=== PATIENT | male | born 1955 ===

== ENCOUNTER 2017-01-16 15:36 | Emergency (ER) | payer MEDICARE, OTHER ==
[2017-01-16 15:36] VITALS: BMI 27.3
[2017-01-16 15:47] VITALS: BP 128/91; PULSE 91; RESP 18; TEMP 97.6; O2SAT 97
--- NOTE | 2017-01-16 17:23 | ED PDOC ---
HPI: General Adult Time Seen by Provider: 01/16/17 15:55 Chief Complaint (Nursing): Lower Extremity Problem/Injury Chief Complaint (Provider): labs History Per: Patient History/Exam Limitations: no limitations Additional Complaint(s): 61yo M in ED for eval of hip pain with cramping to left side and left upper ext cramping with pain x 2days with associated SOB- intermittent without Chest pain , vision changes, weakness in UE/LE,recent injury. denies use any new medication Past Medical History Reviewed: Historical Data, Nursing Documentation, Vital Signs Vital Signs: Last Vital Signs Temp 97.6 F 01/16/17 15:44 Pulse 91 H 01/16/17 15:44 Resp 18 01/16/17 15:44 BP 128/91 H 01/16/17 15:44 Pulse Ox 97 01/16/17 18:31 - Medical History PMH: Anxiety, Depression, Seizures Denies: Diabetes, Hepatitis, HIV, HTN, Chronic Kidney Disease, Sexually Transmitted Disease - Surgical History Surgical History: Appendectomy, Cholecystectomy - Family History Family History: States: Unknown Family Hx - Immunization History Hx Tetanus Toxoid Vaccination: No Hx Influenza Vaccination: No Hx Pneumococcal Vaccination: No - Home Medications Home Medications: Ambulatory Orders Medication Instructions Recorded Escitalopram [Lexapro] 15 mg PO DAILY 01/15/14 Famotidine [Pepcid] 20 mg PO DAILY #30 tab 01/15/14 Olanzapine [Zyprexa] 5 mg PO DAILY 01/15/14 Famotidine [Pepcid] 20 mg PO DAILY #0 tab 08/21/14 Pantoprazole [Protonix EC Tab] 20 mg PO DAILY #0 ect 08/21/14 levETIRAcetam [Keppra] 1,000 mg PO BID #0 tab 08/21/14 Divalproex [Depakote Sprinkles] 250 mg PO DIN 09/09/14 Escitalopram [Lexapro] 10 mg PO DAILY 12/24/14 OLANZapine [Zyprexa] 5 mg PO HS 12/24/14 Zolpidem [Ambien] 10 mg PO HS PRN 12/24/14 Cyanocobalamin [Vitamin B12 1000 1,000 mcg PO DAILY #0 tab 01/15/15 mcg Tab] Docusate [Colace] 100 mg PO BID PRN #30 cap 09/19/15 Hydrocortisone 2.5% (Rectal) 30 applic NM BID #1 tube 09/19/15 [Anusol-HC] Lidocaine [Recticare] 15 gm TP BID PRN #1 cream..g. 09/19/15 - Allergies Allergies/Adverse Reactions: Allergies Allergy/AdvReac Type Severity Reaction Status Date / Time paroxetine HCl [From Paxil] Allergy RASH Verified 09/19/15 05:29 phenytoin sodium Allergy SWELLING Verified 09/22/15 04:36 [From Dilantin] phenytoin sodium extended Allergy SWELLING Verified 09/22/15 04:36 [From Dilantin] Review of Systems ROS Statement: Except As Marked, All Systems Reviewed And Found Negative Musculoskeletal: Positive for: Arm Pain, Leg Pain Physical Exam - Reviewed Nursing Documentation Reviewed: Yes Vital Signs Reviewed: Yes - Physical Exam Appears: Positive for: Well, Non-toxic, No Acute Distress Skin: Positive for: Normal Color, Warm, DRY Eye Exam: Positive for: Normal appearance, EOMI, PERRL ENT: Positive for: Normal ENT Inspection Neck: Positive for: Normal, Painless ROM Cardiovascular/Chest: Positive for: Regular Rate, Rhythm Respiratory: Positive for: CNT, Normal Breath Sounds Gastrointestinal/Abdominal: Positive for: Normal Exam, Bowel Sounds, Soft. 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 Negative for: Facial Droop - ECG O2 Sat by Pulse Oximetry: 97 - Radiology X-Ray: Read By Radiologist X-Ray Interpretation: No Acute Disease - Progress ED Course And Treament: Orders Category Date Time Status EKG [ELECTROCARDIOGRAM] Stat Cardiology 01/16/17 18:31 Ordered COMP METABOLIC PANEL Stat Chem 01/16/17 18:35 Ordered TROPONIN I Stat Chem 01/16/17 18:35 Ordered EKG-ED [EDNURTX] STAT ED Care 01/16/17 18:31 Active CBC (WITH DIFFERENTIAL) Stat ELMO 01/16/17 18:35 Ordered Ibuprofen [Motrin Tab] Med 01/16/17 17:31 Discontinued 600 mg .ROUTE .STK-MED ONE Ibuprofen [Motrin Tab] Med 01/16/17 17:02 Discontinued 600 mg PO STAT STA Ketorolac [Toradol] Med 01/16/17 18:52 Discontinued 15 mg .ROUTE .STK-MED ONE Ketorolac [Toradol] Med 01/16/17 18:31 Discontinued 15 mg IVP STAT STA Sodium Chloride 0.9% 1,000 ml Med 01/16/17 18:31 Active IV 1,000 mls/hr HIP MIN 3V W/ PELVIS ABIEL [RAD] Stat Radiology 01/16/17 17:02 Completed INFLUENZA A B Stat Serology 01/16/17 17:33 Completed Disposition - Disposition Condition: STABLE Forms: [employer] (Italian)
--- NOTE | 2017-01-16 18:10 | RAD ---
PROCEDURE: X-rays of the pelvis and hips HISTORY: injury COMPARISON: No prior TECHNIQUE: AP view of the pelvis AP and oblique views of the hips. FINDINGS: No evidence of acute fracture or dislocation. No evidence of destructive bony lesion IMPRESSION: No evidence of acute fracture or dislocation.
[2017-01-16] MEDS ORDERED: Sodium Chloride 0.9% 1,000 ML IV STA (18:31)
[2017-01-16 20:00] LABS: BASO # 0.1 K/uL (0.0-0.2); BASO % 0.9 % (0.0-2.0); EOS # 0.1 K/uL (0.0-0.7); EOS % 1.1 % (0.0-4.0); LYMPH # 2.3 K/uL (1.0-4.3); LYMPH % 21.6 % (20.0-40.0); MEAN CELL VOLUME 93.7 fl (80.0-94.0); MEAN CORPUSCULAR HEMOGLOBIN 31.6 pg (27.0-31.0); MEAN CORPUSCULAR HGB CONC 33.7 g/dL (33.0-37.0); MEAN PLATELET VOLUME 8.9 fl (7.2-11.7); MONO % 8.9 % (0.0-10.0); NEUT # 7.3 K/uL (1.8-7.0); NEUT % 67.5 % (50.0-75.0); RED CELL DISTRIBUTION WIDTH 13.5 % (11.5-14.5); WHITE BLOOD COUNT 10.8 K/uL (4.8-10.8)
[2017-01-16 20:25] LABS: ALB/GLOB RATIO 1.3 (1.0-2.1); ALKALINE PHOSPHATASE 74 U/L (38-126); ALT/SGPT 64 U/L (21-72); AST/SGOT 103 U/L (17-59); BILIRUBIN,TOTAL 1.4 mg/dl (0.2-1.3); BLOOD UREA NITROGEN 20 mg/dl (9-20); CALCIUM 8.5 mg/dL (8.4-10.2); CARBON DIOXIDE 26 mmol/L (22-30); CHLORIDE 103 mmol/L (98-107); GFR AFRICAN-AMERICAN > 60; GLUCOSE,RANDOM 82 mg/dL (75-110); POTASSIUM 3.8 MMOL/L (3.6-5.0); SODIUM 140 mmol/l (132-148); TOTAL PROTEIN 7.4 G/DL (6.3-8.2)
--- NOTE | 2017-01-16 20:25 | ED PDOC ---
- Laboratory Results Result Diagrams: 01/16/17 19:56 01/16/17 19:56 - ECG O2 Sat by Pulse Oximetry: 97 - Progress ED Course And Treament: Patient transfered to me from Cynthia Rice PA-C for evaluation of left hand paresthesia noted x 2 days after sleep. d/w Dr. Walker. Ct Head/CT C spine wnl. Patient to f/u with his neurologist for further evaluation. Medical Decision Making Medical Decision Makin XR HIP FINDINGS No evidence of acute fracture or dislocation. No evidence of destructive bony lesion IMPRESSION: No evidence of acute fracture or dislocation. 2301 CT HEAD FINDINGS Brain: Minimal atrophy. No intracranial hemorrhage. Lipoma of corpus callosum, stable. No definite edema. Ventricles: No hydrocephalus. Bones/joints: No acute fracture. Soft tissues: Unremarkable. Sinuses: Scattered minimal mucosal thickening. Mastoid air cells: No mastoid effusion. Orbits: Unremarkable as visualized. IMPRESSION: 1. No definite acute intracranial abnormality. Acute infarction may be CT occult within first 24 hours. If a focal deficit persists, consider followup CT or MRI for further evaluation. 2. Incidental/non-acute findings are described above. 2308 CT CERVICAL SPINE FINDINGS Vertebrae: No acute fracture. Discs/spinal canal/neural foramina: Early degenerative disc disease at C3-C4 level. Mild degenerative disc disease at C4-C5, C5-C6, C6-C7 levels. No significant central canal stenosis. Mild neural foraminal narrowing at C5-C6 level. Soft tissues: Unremarkable. Sinuses: Mild focal mucosal thickening of LEFT maxillary sinus. Lung apices: Probable scarring. IMPRESSION: 1. No fracture. 2. If symptoms persist, consider MRI for further evaluation. 3. Incidental/non-acute findings are described above. Scribe Attestation: Documented by Karie Arenas acting as a scribe for Maisha Lujan PA-C. Scribe Attestation: All medical record entries made by the Scribe were at my direction and personally dictated by me. I have reviewed the chart and agree that the record accurately reflects my personal performance of the history, physical exam, medical decision making, and the department course for this patient. I have also personally directed, reviewed, and agree with the discharge instructions and disposition. Disposition - Clinical Impression Clinical Impression: Paresthesias in left hand - POA Present On Arrival: None - Disposition Referrals: [facility] [Outside] Debbie Chen MD [Staff Provider] - Disposition: Routine/Home Disposition Time: 23:27 Condition: STABLE Prescriptions: Naproxen 1 tab PO BID PRN #14 tab PRN Reason: Pain, Moderate (4-7) Instructions: Paresthesia (ED) Forms: [employer] (Nepali) Print Language: CITIZEN OF [place]
--- NOTE | 2017-01-16 23:03 | CT ---
EXAM: CT Head Without Intravenous Contrast CLINICAL HISTORY: 61 years old, male; Signs and symptoms; Numbness / parasthesia; Left; Additional info: Numbness in hand TECHNIQUE: Axial computed tomography images of the head/brain without intravenous contrast. All CT scans at this facility use one or more dose reduction techniques, viz.: automated exposure control; ma/kV adjustment per patient size (including targeted exams where dose is matched to indication; i.e. head); or iterative reconstruction technique. Coronal and sagittal reformatted images were created and reviewed. COMPARISON: CT - HEAD W/O CONTRAST 2016-02-15 17:17 FINDINGS: Brain: Minimal atrophy. No intracranial hemorrhage. Lipoma of corpus callosum, stable. No definite edema. Ventricles: No hydrocephalus. Bones/joints: No acute fracture. Soft tissues: Unremarkable. Sinuses: Scattered minimal mucosal thickening. Mastoid air cells: No mastoid effusion. Orbits: Unremarkable as visualized. IMPRESSION: 1. No definite acute intracranial abnormality. Acute infarction may be CT occult within first 24 hours. If a focal deficit persists, consider followup CT or MRI for further evaluation. 2. Incidental/non-acute findings are described above.
--- NOTE | 2017-01-16 23:10 | CT ---
EXAM: CT Cervical Spine Without Intravenous Contrast CLINICAL HISTORY: 61 years old, male; Signs and symptoms; Numbness; Additional info: Left hand numbness/r/o cervical disc disease TECHNIQUE: Axial computed tomography images of the cervical spine without intravenous contrast. All CT scans at this facility use one or more dose reduction techniques, viz.: automated exposure control; ma/kV adjustment per patient size (including targeted exams where dose is matched to indication; i.e. head); or iterative reconstruction technique. Coronal and sagittal reformatted images were created and reviewed. COMPARISON: No relevant prior studies available. FINDINGS: Vertebrae: No acute fracture. Discs/spinal canal/neural foramina: Early degenerative disc disease at C3-C4 level. Mild degenerative disc disease at C4-C5, C5-C6, C6-C7 levels. No significant central canal stenosis. Mild neural foraminal narrowing at C5-C6 level. Soft tissues: Unremarkable. Sinuses: Mild focal mucosal thickening of LEFT maxillary sinus. Lung apices: Probable scarring. IMPRESSION: 1. No fracture. 2. If symptoms persist, consider MRI for further evaluation. 3. Incidental/non-acute findings are described above.
== END 2017-01-16 23:40 | disposition home or self-care (01) ==
LOC: H.ER 15:36
DX: R20.0 Anesthesia of skin (principal)
CPT/HCPCS: 70450; 72125; 73522; 80053; 83735; 84484; 85025; 87804; 96374; 99283; J1885; J7040

== ENCOUNTER 2017-04-11 14:41 | Emergency (ER) | payer MEDICARE, OTHER ==
[2017-04-11 14:43] VITALS: BMI 27.3
[2017-04-11 14:48] VITALS: TEMP 97.6; O2SAT 98
--- NOTE | 2017-04-11 17:04 | ED PDOC ---
HPI: Seizure Time Seen by Provider: 04/11/17 15:17 Chief Complaint (Nursing): Seizure Chief Complaint (Provider): Seizure History Per: Patient Additional Complaint(s): To ED via BLS for evaluation s/p seizure at home, witnessed by family members. Patient now c/o headache and b/l Calf pain Past Medical History Reviewed: Nursing Documentation, Vital Signs Vital Signs: Last Vital Signs Temp 97.6 F 04/11/17 14:46 Pulse 90 04/11/17 18:49 Resp 19 04/11/17 18:49 BP 120/70 04/11/17 18:49 Pulse Ox 98 04/11/17 19:11 - Medical History PMH: Anxiety, Depression, HTN, Seizures Denies: Diabetes, Hepatitis, HIV, Chronic Kidney Disease, Sexually Transmitted Disease - Surgical History Surgical History: Appendectomy, Cholecystectomy - Family History Family History: States: No Known Family Hx - Living Arrangements Living Arrangements: With Family - Social History Current smoker - smoking cessation education provided: No Ex-Smoker (has not smoked in the last 12 months): No Alcohol: None Drugs: Cannabis - Immunization History Hx Tetanus Toxoid Vaccination: No Hx Influenza Vaccination: No Hx Pneumococcal Vaccination: No - Home Medications Home Medications: Ambulatory Orders Medication Instructions Recorded levETIRAcetam [Keppra] 1,000 mg PO BID #0 tab 08/21/14 Divalproex [Depakote Sprinkles] 125 mg PO HS 09/09/14 Zolpidem [Ambien] 10 mg PO HS PRN 12/24/14 Escitalopram [Lexapro] 10 mg PO DAILY #30 tab 03/05/17 OLANZapine [Zyprexa] 5 mg PO HS 04/11/17 - Allergies Allergies/Adverse Reactions: Allergies Allergy/AdvReac Type Severity Reaction Status Date / Time paroxetine HCl [From Paxil] Allergy RASH Verified 04/11/17 14:45 phenytoin sodium Allergy SWELLING Verified 04/11/17 14:45 [From Dilantin] phenytoin sodium extended Allergy SWELLING Verified 04/11/17 14:45 [From Dilantin] haloperidol [From Haldol] AdvReac SWELLING Verified 04/11/17 14:45 Review of Systems ROS Statement: Except As Marked, All Systems Reviewed And Found Negative Neurological: Positive for: Seizures Physical Exam - Reviewed Nursing Documentation Reviewed: Yes Vital Signs Reviewed: Yes - Physical Exam Appears: Positive for: Well, Non-toxic, No Acute Distress Head Exam: Positive for: ATRAUMATIC, NORMAL INSPECTION, NORMOCEPHALIC Skin: Positive for: Normal Color, Warm, DRY Eye Exam: Positive for: EOMI, Normal appearance, PERRL ENT: Positive for: Normal ENT Inspection Neck: Positive for: Normal, Painless ROM Cardiovascular/Chest: Positive for: Regular Rate, Rhythm Respiratory: Positive for: CNT, Normal Breath Sounds Gastrointestinal/Abdominal: Positive for: Normal Exam, Bowel Sounds, Soft Back: Positive for: Normal Inspection Extremity: Positive for: Normal ROM, Calf Tenderness, Other (PT and DP pulses 2+ ). Negative for: Swelling Neurologic/Psych: Positive for: Alert, Oriented - Laboratory Results Result Diagrams: 04/11/17 17:22 04/11/17 17:22 - ECG O2 Sat by Pulse Oximetry: 98 Medical Decision Making Medical Decision Making: Head CT: Negative Labs resulted and reviewed with Pt who demonstrated full understanding. Pt doing well on re-eval, labs remain stable Case endorsed to Shanti Manuel at 2000 pending duplex and re-eval Disposition - Clinical Impression Clinical Impression: Generalized seizure - Patient ED Disposition Is Patient to be Admitted: Transfer of Care - Disposition Disposition: Transfer of Care Disposition Time: 21:09 Condition: STABLE Instructions: Epilepsy (ED) Forms: [employer] (Turkmen)
[2017-04-11 17:31] LABS: BASO # 0.1 K/uL (0.0-0.2); BASO % 0.6 % (0.0-2.0); EOS # 0.2 K/uL (0.0-0.7); EOS % 1.6 % (0.0-4.0); HEMOGLOBIN 16.9 g/dL (12.0-18.0); LYMPH # 2.9 K/uL (1.0-4.3); LYMPH % 29.9 % (20.0-40.0); MEAN CELL VOLUME 93.1 fl (80.0-94.0); MEAN CORPUSCULAR HEMOGLOBIN 30.8 pg (27.0-31.0); MEAN CORPUSCULAR HGB CONC 33.1 g/dL (33.0-37.0); MEAN PLATELET VOLUME 9.8 fl (7.2-11.7); MONO # 0.7 K/uL (0.0-0.8); MONO % 7.6 % (0.0-10.0); NEUT # 5.8 K/uL (1.8-7.0); NEUT % 60.3 % (50.0-75.0); NRBC % 0.7 % (0.0-0.0); RBC 5.49 Mil/uL (4.40-5.90); RED CELL DISTRIBUTION WIDTH 13.6 % (11.5-14.5); WHITE BLOOD COUNT 9.6 K/uL (4.8-10.8)
[2017-04-11 18:11] LABS: ALB/GLOB RATIO 1.3 (1.0-2.1); ALBUMIN 5.1 g/dL (3.5-5.0); ALT/SGPT 30 U/L (21-72); AST/SGOT 35 U/L (17-59); BLOOD UREA NITROGEN 10 mg/dl (9-20); CALCIUM 9.9 mg/dL (8.4-10.2); GFR AFRICAN-AMERICAN > 60; GFR NON-AFRICAN AMERICAN > 60
--- NOTE | 2017-04-11 18:14 | RAD ---
PROCEDURE: CHEST RADIOGRAPH, 1 VIEW HISTORY: med screening COMPARISON: 01/13/2015. FINDINGS: LUNGS: The lungs are well inflated and clear. PLEURA: No pneumothorax or pleural fluid seen. CARDIOVASCULAR: Normal. OSSEOUS STRUCTURES: No significant abnormalities. VISUALIZED UPPER ABDOMEN: Normal. OTHER FINDINGS: None. IMPRESSION: No active pulmonary disease.
--- NOTE | 2017-04-11 18:18 | CT ---
PROCEDURE: CT HEAD WITHOUT CONTRAST. HISTORY: AMS COMPARISON: 01/16/2017. TECHNIQUE: Axial computed tomography images were obtained through the head/brain without intravenous contrast. Radiation dose: Total exam DLP = 1252.72 mGy-cm. This CT exam was performed using one or more of the following dose reduction techniques: Automated exposure control, adjustment of the mA and/or kV according to patient size, and/or use of iterative reconstruction technique. FINDINGS: HEMORRHAGE: No intracranial hemorrhage. BRAIN: Moscoso-white matter differentiation is preserved. There is no mass, mass effect or abnormal extra-axial fluid collection. Again seen is a lipoma of the corpus callosum. VENTRICLES: The ventricles are normal in size, shape and configuration. CALVARIUM: There is no calvarial fracture or extracranial soft tissue swelling. PARANASAL SINUSES: Predominantly clear. MASTOID AIR CELLS: Predominantly clear. OTHER FINDINGS: None. IMPRESSION: No acute intracranial abnormality.
[2017-04-11 22:09] VITALS: BP 138/85; PULSE 92; RESP 18
--- NOTE | 2017-04-11 22:11 | US ---
EXAM: US Duplex Bilateral Lower Extremity Veins CLINICAL HISTORY: 61 years old, male; Pain; Leg, lower; Bilateral; Additional info: R/O dvt TECHNIQUE: Real-time ultrasound scan of the veins of the bilateral lower extremities with color Doppler flow, spectral waveform analysis and compression. COMPARISON: No relevant prior studies available. FINDINGS: Right deep veins: Unremarkable. No DVT in the right common femoral, femoral, proximal deep femoral or popliteal veins. The veins demonstrate normal color flow, are normally compressible, with normal phasic flow and/or augmentation response. Right superficial veins: Unremarkable. No thrombus in the visualized right great saphenous vein. Left deep veins: Unremarkable. No DVT in the left common femoral, femoral, proximal deep femoral or popliteal veins. The veins demonstrate normal color flow, are normally compressible, with normal phasic flow and/or augmentation response. Left superficial veins: Unremarkable. No thrombus in the visualized left great saphenous vein. Soft tissues: No acute findings. No popliteal cyst. IMPRESSION: No evidence of right or left lower extremity deep venous thrombosis.
--- NOTE | 2017-04-11 22:45 | ED PDOC ---
- Laboratory Results Result Diagrams: 04/11/17 17:22 04/11/17 17:22 - ECG O2 Sat by Pulse Oximetry: 98 - Progress ED Course And Treament: Case endorsed to loan underwriter from Bonifacio GOMEZ pending u/s EXAM: US Duplex Bilateral Lower Extremity Veins CLINICAL HISTORY: 61 years old, male; Pain; Leg, lower; Bilateral; Additional info: R/O dvt TECHNIQUE: Real-time ultrasound scan of the veins of the bilateral lower extremities with color Doppler flow, spectral waveform analysis and compression. COMPARISON: No relevant prior studies available. FINDINGS: Right deep veins: Unremarkable. No DVT in the right common femoral, femoral, proximal deep femoral or popliteal veins. The veins demonstrate normal color flow, are normally compressible, with normal phasic flow and/or augmentation response. Right superficial veins: Unremarkable. No thrombus in the visualized right great saphenous vein. Left deep veins: Unremarkable. No DVT in the left common femoral, femoral, proximal deep femoral or popliteal veins. The veins demonstrate normal color flow, are normally compressible, with normal phasic flow and/or augmentation response. Left superficial veins: Unremarkable. No thrombus in the visualized left great saphenous vein. Soft tissues: No acute findings. No popliteal cyst. IMPRESSION: No evidence of right or left lower extremity deep venous thrombosis. On re-eval, patient resting comfortably, states he is feeling better. Patient educated on findings, discharged with instructions to follow up PMD 2-3 days. Return precautions given. Disposition - Clinical Impression Clinical Impression: Generalized seizure - POA Present On Arrival: None - Disposition Disposition: Routine/Home Disposition Time: 22:46 Condition: IMPROVED Instructions: Epilepsy (ED) Forms: [employer] (Ukrainian)
== END 2017-04-11 23:10 | disposition home or self-care (01) ==
LOC: H.ER 14:41
DX: G40.909 Epilepsy, unspecified, not intractable, without status epilepticus (principal); I10 Essential (primary) hypertension; F32.9 Major depressive disorder, single episode, unspecified; F41.9 Anxiety disorder, unspecified
CPT/HCPCS: 70450; 71045; 80053; 85025; 93970; 96360; 99285; J3480

== ENCOUNTER 2017-11-08 11:49 | Inpatient (IN) | payer OTHER ==
[2017-11-08 12:00] VITALS: BMI 32.8
[2017-11-08] MEDS ORDERED: Lidocaine 1% w Epi 1:100,000 Inj INFIL ONE (12:25)
[2017-11-08] MEDS ORDERED: Lidocaine 2% w Epi 1:100,000 Inj IJ ONE (12:26)
--- NOTE | 2017-11-08 12:49 | ED PDOC ---
HPI: Skin/Bite Injury Time Seen by Provider: 11/08/17 12:20 Chief Complaint (Nursing): Abnormal Skin Integrity History Per: Patient History/Exam Limitations: no limitations Current Symptoms Are (Timing): Still Present Additional Complaint(s): 61-year-old male, presents to the emergency department with complaints of one- week duration of swelling and pain to left hip. Patient denies any fever or chills. Tetanus up to date. Past Medical History Reviewed: Historical Data, Nursing Documentation, Vital Signs Vital Signs: Last Vital Signs Temp 98.5 F 11/08/17 11:59 Pulse 79 11/08/17 11:59 Resp 20 11/08/17 11:59 BP 127/71 11/08/17 11:59 Pulse Ox 99 11/08/17 14:06 - Medical History PMH: Anxiety, Depression, HTN, Seizures - Surgical History Surgical History: Appendectomy, Cholecystectomy - Family History Family History: States: No Known Family Hx - Immunization History Hx Tetanus Toxoid Vaccination: No Hx Influenza Vaccination: No Hx Pneumococcal Vaccination: No - Home Medications Home Medications: Ambulatory Orders Medication Instructions Recorded levETIRAcetam [Keppra] 1,000 mg PO BID #0 tab 08/21/14 Divalproex [Depakote Sprinkles] 125 mg PO HS 09/09/14 Zolpidem [Ambien] 10 mg PO HS PRN 12/24/14 Escitalopram [Lexapro] 10 mg PO DAILY #30 tab 03/05/17 OLANZapine [Zyprexa] 5 mg PO HS 04/11/17 Cephalexin [Keflex] 500 mg PO QID #28 capsule 11/08/17 Naproxen 375 mg PO Q8 PRN #21 tablet 11/08/17 Sulfamethoxazole/Trimethoprim 2 tab PO BID #28 tab 11/08/17 [Bactrim DS 800 mg-160 mg] - Allergies Allergies/Adverse Reactions: Allergies Allergy/AdvReac Type Severity Reaction Status Date / Time paroxetine HCl [From Paxil] Allergy dyskinesia Verified 11/08/17 12:25 like phenytoin sodium Allergy SWELLING Verified 11/08/17 12:24 [From Dilantin] phenytoin sodium extended Allergy SWELLING Verified 11/08/17 12:24 [From Dilantin] haloperidol [From Haldol] AdvReac SWELLING Verified 11/08/17 12:24 Review of Systems Skin: Positive for: Other (swelling and pain to left hip) Physical Exam - Reviewed Nursing Documentation Reviewed: Yes Vital Signs Reviewed: Yes - Physical Exam Appears: Positive for: Non-toxic, No Acute Distress Head Exam: Positive for: ATRAUMATIC, NORMOCEPHALIC Skin: Positive for: Warm (6x6cm area of induration, swelling with surrounding erythema. ), Dry Eye Exam: Positive for: Normal appearance Neck: Positive for: Painless ROM Extremity: Positive for: Normal ROM. Negative for: Deformity Neurologic/Psych: Positive for: Alert, Oriented - ECG O2 Sat by Pulse Oximetry: 99 Medical Decision Making Medical Decision Making: Impression Cellulitis Plan: * Vancomycin, Toradol * Lido/Epi, I&D * Reassess and Disposition Scribe Attestation: Documented by Gabriel Cabrera, acting as a scribe for YUE Griggs. Provider Scribe Attestation: All medical record entries made by the Scribe were at my direction and personally dictated by me. I have reviewed the chart and agree that the record accurately reflects my personal performance of the history, physical exam, medical decision making, and the department course for this patient. I have also personally directed, reviewed, and agree with the discharge instructions and disposition. Disposition - Clinical Impression Clinical Impression: Abscess, Cellulitis of left hip - Patient ED Disposition Is Patient to be Admitted: No - Disposition Referrals: Gavino Hidalgo MD [Staff Provider] - Disposition: Routine/Home Disposition Time: 14:47 Condition: FAIR Additional Instructions: REGRESA EN 2 AMAYA PARA REVISAR Prescriptions: Cephalexin [Keflex] 500 mg PO QID #28 capsule Naproxen 375 mg PO Q8 PRN #21 tablet PRN Reason: Pain, Moderate (4-7) Sulfamethoxazole/Trimethoprim [Bactrim DS 800 mg-160 mg] 2 tab PO BID #28 tab Instructions: Skin Abscess, Cellulitis and Erysipelas (Skin Infections) Forms: [facility] ED School/Work Excuse Print Language: BRAZILIAN - Incision & Drainage Of Abscess Anesthesia: Lidocaine 2%, With Epi Procedure: Incised W/Scalpel Blade#: (10), Drained Pus (moderate), Probed To Break Up Loculations, Packed W/Gauze
[2017-11-08] MEDS ORDERED: Vancomycin 1 g Inj ONE (12:58)
[2017-11-08] MEDS ORDERED: Morphine 4 MG/ML VIAL IVP STA (15:04)
[2017-11-08] MEDS ORDERED: Morphine 4 MG/ML VIAL ONE (15:26)
[2017-11-08 15:34] LABS: VENOUS BLOOD GAS BASE EXCESS 1.7 mmol/L (0.0-2.0); VENOUS BLOOD GAS PCO2 30 mmHg (40-60); VENOUS BLOOD GAS PO2 67 mm/Hg (30-55); VENOUS BLOOD PH 7.51 (7.32-7.43)
[2017-11-08 15:35] LABS: BASO # 0.1 K/uL (0.0-0.2); BASO % 0.6 % (0.0-2.0); EOS # 0.2 K/uL (0.0-0.7); EOS % 1.1 % (0.0-4.0); LYMPH # 1.9 K/uL (1.0-4.3); LYMPH % 11.1 % (20.0-40.0); MEAN CELL VOLUME 91.2 fl (80.0-94.0); MEAN CORPUSCULAR HEMOGLOBIN 31.5 pg (27.0-31.0); MEAN CORPUSCULAR HGB CONC 34.5 g/dL (33.0-37.0); MEAN PLATELET VOLUME 9.9 fl (7.2-11.7); MONO # 1.5 K/uL (0.0-0.8); MONO % 8.5 % (0.0-10.0); NEUT # 13.8 K/uL (1.8-7.0); NEUT % 78.7 % (50.0-75.0); RBC 4.77 Mil/uL (4.40-5.90); RED CELL DISTRIBUTION WIDTH 12.8 % (11.5-14.5); WHITE BLOOD COUNT 17.5 K/uL (4.8-10.8)
[2017-11-08 15:54] LABS: BLOOD UREA NITROGEN 12 mg/dl (9-20); CALCIUM 9.1 mg/dL (8.4-10.2); GFR NON-AFRICAN AMERICAN > 60
[2017-11-08 16:01] LABS: SQUAMOUS EPITHIAL 5 /hpf (0-5); URINE BACTERIA RARE (<OCC); URINE BILIRUBIN NEGATIVE (NEGATIVE); URINE BLOOD SMALL (NEGATIVE); URINE CLARITY SLIGHTY-CLOUDY (Clear); URINE COLOR YELLOW (YELLOW); URINE GLUCOSE (UA) NEG (Normal); URINE HYALINE CAST 0-2 /hpf (0-2); URINE LEUKOCYTE ESTERASE NEG Leu/uL (Negative); URINE PROTEIN NEGATIVE (NEGATIVE); URINE UROBILINOGEN 0.2-1.0 mg/dL (0.2-1.0)
[2017-11-08] MEDS ORDERED: Piperacillin/Tazobact 3.375 GM in Sodium Chloride 0.9% 100 ML IVPB STA (16:05)
[2017-11-08] MEDS ORDERED: Iohexol 300 100 ML IJ ONE (18:31)
[2017-11-08] MEDS ORDERED: Sodium Chloride 0.9% 100 ML ONE (18:31)
[2017-11-08] MEDS: Piperacillin/Tazobact 3.375 GM in Sodium Chloride 0.9% 100 ML IVPB SCH (21:28)
[2017-11-08] MEDS: Divalproex 125 mg Sprinkle Capsule PO SCH (21:29)
[2017-11-09] MEDS: Piperacillin/Tazobact 3.375 GM in Sodium Chloride 0.9% 100 ML IVPB SCH ×4 (03:50→21:19)
[2017-11-09 05:58] LABS: HEMOGLOBIN 14.1 g/dL (12.0-18.0); MEAN CELL VOLUME 93.2 fl (80.0-94.0); MEAN CORPUSCULAR HEMOGLOBIN 31.1 pg (27.0-31.0); MEAN CORPUSCULAR HGB CONC 33.4 g/dL (33.0-37.0); RBC 4.54 Mil/uL (4.40-5.90); WHITE BLOOD COUNT 13.3 K/uL (4.8-10.8)
[2017-11-09 06:30] LABS: BLOOD UREA NITROGEN 16 mg/dl (9-20); CALCIUM 8.6 mg/dL (8.4-10.2); GFR NON-AFRICAN AMERICAN > 60; HDL CHOLESTEROL 35 MG/DL (30-70)
[2017-11-09 06:32] LABS: LDL CHOLESTEROL 59 mg/dL (0-129)
[2017-11-09 06:52] LABS: T3 0.805 nmol/L (1.49-2.60)
--- NOTE | 2017-11-09 09:42 | CT ---
Date of service: 11/08/2017 PROCEDURE: CT Abdomen and Pelvis with contrast HISTORY: dr bates, r/o abscess COMPARISON: Limited abdomen ultrasound 09/22/2015. TECHNIQUE: Following the intravenous administration of iodinated contrast material, a CT examination of the abdomen and pelvis performed from the domes of the diaphragms to the symphysis pubis with reformatted datasets provided in axial, sagittal and coronal planes. Oral contrast was not administered as per referring physician request. Coronal and sagittal reformats were generated. Contrast dose: Omnipaque 350, 95 cc Radiation dose: Total exam DLP = 452.14 mGy-cm. This CT exam was performed using one or more of the following dose reduction techniques: Automated exposure control, adjustment of the mA and/or kV according to patient size, and/or use of iterative reconstruction technique. FINDINGS: LOWER THORAX: 5.5 mm right middle lobe basilar nodule, noncalcified. Limited linear atelectasis left lower lobe base. Mild cardiomegaly suspected. LIVER: Unremarkable. No gross lesion or ductal dilatation. GALLBLADDER AND BILE DUCTS: Unremarkable. PANCREAS: Unremarkable. No gross lesion or ductal dilatation. SPLEEN: Unremarkable. ADRENALS: Unremarkable. No mass. KIDNEYS AND URETERS: Stable lower pole 1.5 right renal cyst identified. Interval or previously poorly demonstrate 1.4 cm complex cyst or soft tissue lesion midpole right kidney posteriorly which is indeterminate in etiology based on this single phase contrast exam. There multiple right middle lower pole lucencies too small to characterize however. Left kidney appears unremarkable. VASCULATURE: Unremarkable. No aortic aneurysm. BOWEL: Stomach distended with retained food and otherwise unremarkable. This limits evaluation. Evaluation of the gastrointestinal tract is limited due to the lack of oral contrast administration. No bowel obstruction, pericolic or perienteric reaction identified. APPENDIX: Normal appendix. PERITONEUM: Unremarkable. No free fluid. No free air. LYMPH NODES: Unremarkable. No enlarged lymph nodes. BLADDER: Unremarkable. REPRODUCTIVE: Mild prostate gland enlargement. BONES: No acute fracture. OTHER FINDINGS: There is extensive dermal thickening and subcutaneous reaction related to the lateral left buttocks with the hyperdensity measuring 1.5 x 1.3 cm in the immediate subcutaneous fat laterally potentially reflecting a small abscess or retained radiodense foreign body. Clinically correlate further. IMPRESSION: 1. 1.5 cm hyperdensity surrounded by a prominent left lateral buttocks subcutaneous fatty reaction and dermal thickening suspicious for potential retained radiodense foreign body, phlegmon or abscess or combination of all 3. Clinically for correlate further. 2. Stable 1.5 cm right renal cyst with indeterminate 1.4 cm complex cyst or soft tissue lesion at the lower pole for which follow-up CT or MRI without and without contrast is advised. 3. 5.5 mm right middle lobe basilar nodule, noncalcified. Follow-up chest CT advised in 12 months. Lung RAD 2. Concordant preliminary report from [facility], 11/08/2017.
--- NOTE | 2017-11-09 12:44 | RAD ---
Date of service: 11/09/2017 HISTORY: Admission COMPARISON: 04/11/2017. FINDINGS: LUNGS: No active pulmonary disease. PLEURA: No significant pleural effusion identified, no pneumothorax apparent. CARDIOVASCULAR: No radiographic findings to suggest acute or significant cardiovascular disease. OSSEOUS STRUCTURES: No significant abnormalities. VISUALIZED UPPER ABDOMEN: Normal. OTHER FINDINGS: None. IMPRESSION: No active disease. No significant interval change compared to the prior examination(s).
--- NOTE | 2017-11-09 13:21 | CP.PCM.CON ---
History of Present Illness - History of Present Illness History of Present Illness: 61-year-old male, presents to the emergency department with complaints of one- week duration of swelling and pain to left hip. Patient denies any fever or chills. Tetanus up to date. has large abscess over left hip which is painful and tender ID consulted for this - Medical History PMH: Anxiety, Depression, HTN, Seizures - Surgical History Surgical History: Appendectomy, Cholecystectomy Review of Systems - Review of Systems All systems: reviewed and no additional remarkable complaints except - Constitutional Constitutional: As Per HPI - EENT Eyes: absent: As Per HPI, Blind Spots, Blurred Vision, Change in Vision, Decreased Night Vision, Diplopia, Discharge, Dry Eye, Exophthalmos, Floaters, Irritation, Itchy Eyes, Loss of Peripheral Vision, Pain, Photophobia, Requires Corrective Lenses, Sees Flashes, Spots in Vision, Tunnel Vision, Other Visual Disturbances, Loss of Vision, Other Ears: absent: As Per HPI, Decreased Hearing, Ear Discharge, Ear Pain, Tinnitus, Abnormal Hearing, Disequilibrium, Dizziness, Other Nose/Mouth/Throat: absent: As Per HPI, Epistaxis, Nasal Congestion, Nasal Discharge, Nasal Obstruction, Nasal Trauma, Nose Pain, Post Nasal Drip, Sinus Pain, Sinus Pressure, Bleeding Gums, Change in Voice, Dental Pain, Dry Mouth, Dysphagia, Halitosis, Hoarsness, Lip Swelling, Mouth Lesions, Mouth Pain, Odynophagia, Sore Throat, Throat Swelling, Tongue Swelling, Facial Pain, Neck Pain, Neck Mass, Other - Cardiovascular Cardiovascular: absent: As Per HPI, Acrocyanosis, Chest Pain, Chest Pain at Rest , Chest Pain with Activity, Claudication, Diaphoresis, Dyspnea, Dyspnea on Exertion, Edema, Irregular Heart Rhythm, Pain Radiating to Arm/Neck/Jaw, Leg Edema, Leg Ulcers, Lightheadedness, Orthopnea, Palpitations, Paroxysmal Nocturnal Dyspnea, Pedal Edema, Radiating Pain, Rapid Heart Rate, Slow Heart Rate, Syncope, Other - Respiratory Respiratory: absent: As Per HPI, Cough, Dyspnea, Hemoptysis, Dyspnea on Exertion , Wheezing, Snoring, Stridor, Pain on Inspiration, Chest Congestion, Excessive Mucous Production, Change in Mucous Color, Pain with Coughing, Other - Gastrointestinal Gastrointestinal: absent: As Per HPI, Abdominal Pain, Belching, Bloating, Change in Bowel Habits, Change in Stool Character, Coffee Ground Emesis, Constipation, Cramping, Diarrhea, Dyspepsia, Dysphagia, Early Satiety, Excessive Flatus, Fecal Incontinence, Heartburn, Hematemesis, Hematochezia, Loose Stools, Melena, Nausea, Odynophagia, Temesmus, Vomiting, Other - Genitourinary Genitourinary: absent: As Per HPI, Change in Urinary Stream, Difficulty Urinating, Dysuria, Flank Pain, Hematuria, Pyuria, Nocturia, Urinary Incontinence, Urinary Frequency, Urinary Hesitance, Urinary Urgency, Voiding Freq/Small Amts, Freq UTI, Hx Renal/Bladder Calculi, Hx /Renal Surgery, Bladder Distension, Other - Musculoskeletal Musculoskeletal: As Per HPI - Integumentary Integumentary: As Per HPI, Skin Pain, Wounds - Neurological Neurological: absent: As Per HPI, Abnormal Gait, Abnormal Hearing, Abnormal Movements, Abnormal Speech, Behavioral Changes, Burning Sensations, Confusion, Convulsions, Disequilibrium, Dizziness, Numbness, Focal Weakness, Frequent Falls , Headaches, Lack of Coordination, Loss of Vision, Memory Loss, Paresthesias, Radicular Pain, Restless Legs, Sensory Deficit, Syncope, Tingling, Tremor, Vertigo, Weakness, Other Visual Disturbances, Other - Psychiatric Psychiatric: absent: As Per HPI, Abnormal Sleep Pattern, Anhedonia, Anxiety, Auditory Hallucinations, Behavioral Changes, Change in Appetite, Change in Libido, Confusion, Depression, Difficulty Concentrating, Hallucinations, Homicidal Ideation, Hopelessness, Irritability, Memory Loss, Mood Swings, Panic Attacks, Paranoia, Suicidal Ideation, Visual Hallucinations, Tactile Hallucinations, Other - Endocrine Endocrine: absent: As Per HPI, Change in Body Appearance, Change in Libido, Cold Intolorance, Deepening of Voice, Excessive Sweating, Fatigue, Flushing, Heat Intolorance, Increase in Ring/Shoe/Hat Size, Palpitations, Polydipsia, Polyphagia, Polyuria, Other - Hematologic/Lymphatic Hematologic: absent: As Per HPI, Easy Bleeding, Easy Bruising, Lymphadenopathy, Other Past Patient History - Past Medical History & Family History Past Medical History?: Yes - Past Social History Smoking Status: Former Smoker - CARDIAC Hx Hypertension: Yes - PULMONARY Hx Tuberculosis: No - NEUROLOGICAL Hx Seizures: Yes - HEENT Hx HEENT Problems: No - ENDOCRINE/METABOLIC Hx Endocrine Disorders: Yes - HEMATOLOGICAL/ONCOLOGICAL Hx Cancer: No - INTEGUMENTARY Hx Dermatological Problems: No - MUSCULOSKELETAL/RHEUMATOLOGICAL Hx Musculoskeletal Disorders: No Hx Falls: No - GASTROINTESTINAL Hx Gastrointestinal Disorders: No - GENITOURINARY/GYNECOLOGICAL Hx Genitourinary Disorders: No - PSYCHIATRIC Hx Anxiety: Yes Hx Depression: Yes Hx Substance Use: No - SURGICAL HISTORY Hx Appendectomy: Yes Hx Cholecystectomy: Yes - ANESTHESIA Hx Anesthesia: Yes Hx Anesthesia Reactions: No Hx Malignant Hyperthermia: No Meds Home Medications: Home Medication List Medication Instructions Recorded Confirmed Type Cephalexin [Keflex] 500 mg PO QID #28 capsule 11/08/17 Rx Naproxen 375 mg PO Q8 PRN #21 tablet 11/08/17 Rx Sulfamethoxazole/Trimethoprim 2 tab PO BID #28 tab 11/08/17 Rx [Bactrim DS 800 mg-160 mg] Allergies/Adverse Reactions: Allergies Allergy/AdvReac Type Severity Reaction Status Date / Time paroxetine HCl [From Paxil] Allergy dyskinesia Verified 11/08/17 12:25 like phenytoin sodium Allergy SWELLING Verified 11/08/17 12:24 [From Dilantin] phenytoin sodium extended Allergy SWELLING Verified 11/08/17 12:24 [From Dilantin] haloperidol [From Haldol] AdvReac SWELLING Verified 11/08/17 12:24 - Medications Medications: Current Medications Divalproex Sodium (Depakote Sprinkles) 125 mg PO HS [facility] Last Admin: 11/08/17 21:29 Dose: 125 mg Escitalopram Oxalate (Lexapro) 10 mg PO DAILY [facility] Last Admin: 11/09/17 08:00 Dose: 10 mg Piperacillin Sod/Tazobactam (Sod 3.375 gm/ Sodium Chloride) 100 mls @ 100 mls/ hr IVPB Q6 ANGELITO PRN Reason: Protocol Last Admin: 11/09/17 08:59 Dose: 100 mls/hr Vancomycin HCl 1 gm/ Sodium (Chloride) 250 mls @ 166.667 mls/hr IVPB Q12@0000, 1200 ANGELITO PRN Reason: Protocol Last Admin: 11/09/17 12:04 Dose: 166.667 mls/hr Levetiracetam (Keppra) 1,000 mg PO BID [facility] Last Admin: 11/09/17 07:59 Dose: 1,000 mg Morphine Sulfate (Morphine) 2 mg IVP Q4 PRN PRN Reason: Pain, severe (8-10) Last Admin: 11/09/17 06:11 Dose: 2 mg Olanzapine (Zyprexa) 5 mg PO HS ANGELITO Last Admin: 11/08/17 21:30 Dose: 5 mg Zolpidem Tartrate (Ambien) 5 mg PO HS PRN PRN Reason: Insomnia Physical Exam - Constitutional Appears: No Acute Distress - Head Exam Head Exam: ATRAUMATIC, NORMAL INSPECTION, NORMOCEPHALIC - Eye Exam Eye Exam: PERRL. absent: Scleral icterus - ENT Exam ENT Exam: Mucous Membranes Dry, Normal External Ear Exam, Normal Oropharynx - Neck Exam Neck exam: Negative for: Lymphadenopathy - Respiratory Exam Respiratory Exam: Decreased Breath Sounds, Clear to Auscultation Bilateral - Cardiovascular Exam Cardiovascular Exam: REGULAR RHYTHM, +S1, +S2 - GI/Abdominal Exam GI & Abdominal Exam: Diminished Bowel Sounds, Distended, Soft. absent: Tenderness - Rectal Exam Rectal Exam: Deferred - Exam Exam: NORMAL INSPECTION - Extremities Exam Extremities exam: Positive for: pedal pulses present. Negative for: calf tenderness, pedal edema, tenderness - Back Exam Back exam: absent: CVA tenderness (L), CVA tenderness (R), paraspinal tenderness - Neurological Exam Neurological exam: Alert, CN II-XII Intact, Oriented x3, Reflexes Normal - Psychiatric Exam Psychiatric exam: Depressed - Skin Additional comments: large abscess over left hip with painful tender area surrounding this Results - Vital Signs Recent Vital Signs: Last Vital Signs Temp 98.4 F 11/09/17 08:31 Pulse 81 11/09/17 08:31 Resp 18 11/09/17 08:31 BP 114/71 11/09/17 08:31 Pulse Ox 96 11/09/17 08:31 - Labs Result Diagrams: 11/09/17 05:40 11/09/17 05:40 Labs: Laboratory Results - last 24 hr 11/08/17 11/08/17 11/08/17 15:25 15:25 15:25 WBC 17.5 H D RBC 4.77 Hgb 15.0 Hct 43.5 MCV 91.2 MCH 31.5 H MCHC 34.5 RDW 12.8 Plt Count 255 MPV 9.9 Neut % (Auto) 78.7 H Lymph % (Auto) 11.1 L [place] % (Auto) 8.5 Eos % (Auto) 1.1 Baso % (Auto) 0.6 Neut # (Auto) 13.8 H Lymph # (Auto) 1.9 [place] # (Auto) 1.5 H Eos # (Auto) 0.2 Baso # (Auto) 0.1 pO2 VBG pH VBG pCO2 VBG HCO3 VBG Total CO2 VBG O2 Sat (Calc) VBG Base Excess VBG Potassium Glucose Lactate FiO2 Sodium 137 Potassium 4.7 Chloride 106 Carbon Dioxide 19 L Anion Gap 17 BUN 12 Creatinine 0.7 L Est GFR ( Amer) > 60 Est GFR (Non-Af Amer) > 60 Random Glucose 94 Calcium 9.1 Triglycerides Cholesterol LDL Cholesterol Direct HDL Cholesterol Thyroxine (T4) Total T3 Venous Blood Potassium Urine Color Yellow Urine Clarity Slighty-cloudy Urine pH 6.0 Ur Specific [place] 1.018 Urine Protein Negative Urine Glucose (UA) Neg Urine Ketones Negative Urine Blood Small Urine Nitrate Negative Urine Bilirubin Negative Urine Urobilinogen 0.2-1.0 Ur Leukocyte Esterase Neg Urine RBC (Auto) 4 H Urine Microscopic WBC 1 Ur Squamous Epith Cells 5 Urine Bacteria Rare Hyaline Casts 0-2 Valproic Acid 11/08/17 11/09/17 11/09/17 15:27 05:40 05:40 WBC 13.3 H RBC 4.54 Hgb 14.1 Hct 42.3 MCV 93.2 D MCH 31.1 H MCHC 33.4 RDW 13.0 Plt Count 228 MPV Neut % (Auto) Lymph % (Auto) [place] % (Auto) Eos % (Auto) Baso % (Auto) Neut # (Auto) Lymph # (Auto) [place] # (Auto) Eos # (Auto) Baso # (Auto) pO2 67 H VBG pH 7.51 H VBG pCO2 30 L VBG HCO3 26.2 VBG Total CO2 24.8 VBG O2 Sat (Calc) 97.8 H VBG Base Excess 1.7 VBG Potassium 4.4 Glucose 99 Lactate 1.7 FiO2 21.0 Sodium 134.0 138 Potassium 4.3 Chloride 105.0 104 Carbon Dioxide 27 Anion Gap 11 BUN 16 Creatinine 1.1 Est GFR ( Amer) > 60 Est GFR (Non-Af Amer) > 60 Random Glucose 93 Calcium 8.6 Triglycerides 147 Cholesterol 135 LDL Cholesterol Direct 59 HDL Cholesterol 35 Thyroxine (T4) 7.30 Total T3 0.805 L Venous Blood Potassium 4.4 Urine Color Urine Clarity Urine pH Ur Specific [place] Urine Protein Urine Glucose (UA) Urine Ketones Urine Blood Urine Nitrate Urine Bilirubin Urine Urobilinogen Ur Leukocyte Esterase Urine RBC (Auto) Urine Microscopic WBC Ur Squamous Epith Cells Urine Bacteria Hyaline Casts Valproic Acid 11/09/17 11:07 WBC RBC Hgb Hct MCV MCH MCHC RDW Plt Count MPV Neut % (Auto) Lymph % (Auto) [place] % (Auto) Eos % (Auto) Baso % (Auto) Neut # (Auto) Lymph # (Auto) [place] # (Auto) Eos # (Auto) Baso # (Auto) pO2 VBG pH VBG pCO2 VBG HCO3 VBG Total CO2 VBG O2 Sat (Calc) VBG Base Excess VBG Potassium Glucose Lactate FiO2 Sodium Potassium Chloride Carbon Dioxide Anion Gap BUN Creatinine Est GFR ( Amer) Est GFR (Non-Af Amer) Random Glucose Calcium Triglycerides Cholesterol LDL Cholesterol Direct HDL Cholesterol Thyroxine (T4) Total T3 Venous Blood Potassium Urine Color Urine Clarity Urine pH Ur Specific [place] Urine Protein Urine Glucose (UA) Urine Ketones Urine Blood Urine Nitrate Urine Bilirubin Urine Urobilinogen Ur Leukocyte Esterase Urine RBC (Auto) Urine Microscopic WBC Ur Squamous Epith Cells Urine Bacteria Hyaline Casts Valproic Acid < 10.0 L Assessment & Plan (1) Abscess Status: Acute (2) Cellulitis of left hip Status: Acute (3) Alcohol use disorder, severe, dependence Status: Acute (4) Bipolar disorder, now depressed Status: Acute - Assessment and Plan (Free Text) Assessment: 61 yo male with hx of bipolar and etoh admitted with severe cellulitis and abscess left hip high concern for MRSA consider MRI, Ortho eval and observe for DT's await cultures from limited ED drainage may need I and D in OR cont IV antibiotics
--- NOTE | 2017-11-09 16:00 | CP.PCM.CON ---
<Eduardo Tijerina - Last Filed: 11/09/17 18:02> History of Present Illness - History of Present Illness History of Present Illness: General Surgery Consult Note for Dr. Joseph Reason for consult: left hip abscess, s/p I&D in ED 61 M with no significant PMH presents to [facility] for complaint of Left hip swelling , redness and pain. He states that symptoms were present for 1 week. He reports that it started out as a small pimple which he tried to pop. He states that some pus had come out at that time. Over the next week, symptoms worsened. Patient was admitted for Left hip abscess and cellulitis. The left hip abscess was I&D in the ED and packed. Patient was started on broad spectrum antibiotics and ID was consulted. He rates pain as severe. He describes pain as constant and sharp located on the left hip. Palpation and movement aggravates pain but nothing alleviates the pain. Admits to fever/chills. Denies chest pain , SOB, palpitations, abdominal pain, nausea/vomiting, diarrhea, constipation, crepitus. PMH: Denies PSH: Appendectomy, R inguinal hernia Meds: denies All: paroxetine, phenytoin, haloperidol FH:non-contributory Social: Denies tobacco/EtOH/illicit drug use Review of Systems - Review of Systems All systems: reviewed and no additional remarkable complaints except (as per HPI ) Past Patient History - Past Medical History & Family History Past Medical History?: Yes - Past Social History Smoking Status: Former Smoker - CARDIAC Hx Hypertension: Yes - PULMONARY Hx Tuberculosis: No - NEUROLOGICAL Hx Seizures: Yes - HEENT Hx HEENT Problems: No - ENDOCRINE/METABOLIC Hx Endocrine Disorders: Yes - HEMATOLOGICAL/ONCOLOGICAL Hx Cancer: No - INTEGUMENTARY Hx Dermatological Problems: No - MUSCULOSKELETAL/RHEUMATOLOGICAL Hx Musculoskeletal Disorders: No Hx Falls: No - GASTROINTESTINAL Hx Gastrointestinal Disorders: No - GENITOURINARY/GYNECOLOGICAL Hx Genitourinary Disorders: No - PSYCHIATRIC Hx Anxiety: Yes Hx Depression: Yes Hx Substance Use: No - SURGICAL HISTORY Hx Appendectomy: Yes Hx Cholecystectomy: Yes - ANESTHESIA Hx Anesthesia: Yes Hx Anesthesia Reactions: No Hx Malignant Hyperthermia: No Meds Home Medications: Home Medication List Medication Instructions Recorded Confirmed Type Cephalexin [Keflex] 500 mg PO QID #28 capsule 11/08/17 Rx Naproxen 375 mg PO Q8 PRN #21 tablet 11/08/17 Rx Sulfamethoxazole/Trimethoprim 2 tab PO BID #28 tab 11/08/17 Rx [Bactrim DS 800 mg-160 mg] Allergies/Adverse Reactions: Allergies Allergy/AdvReac Type Severity Reaction Status Date / Time paroxetine HCl [From Paxil] Allergy dyskinesia Verified 11/08/17 12:25 like phenytoin sodium Allergy SWELLING Verified 11/08/17 12:24 [From Dilantin] phenytoin sodium extended Allergy SWELLING Verified 11/08/17 12:24 [From Dilantin] haloperidol [From Haldol] AdvReac SWELLING Verified 11/08/17 12:24 - Medications Medications: Current Medications Divalproex Sodium (Depakote Sprinkles) 125 mg PO HS [facility] Last Admin: 11/08/17 21:29 Dose: 125 mg Escitalopram Oxalate (Lexapro) 10 mg PO DAILY [facility] Last Admin: 11/09/17 08:00 Dose: 10 mg Piperacillin Sod/Tazobactam (Sod 3.375 gm/ Sodium Chloride) 100 mls @ 100 mls/ hr IVPB Q6 [facility] PRN Reason: Protocol Last Admin: 11/09/17 15:47 Dose: 100 mls/hr Vancomycin HCl 1 gm/ Sodium (Chloride) 250 mls @ 166.667 mls/hr IVPB Q12@0000, 1200 [facility] PRN Reason: Protocol Last Admin: 11/09/17 12:04 Dose: 166.667 mls/hr Levetiracetam (Keppra) 1,000 mg PO BID [facility] Last Admin: 11/09/17 15:59 Dose: 1,000 mg Morphine Sulfate (Morphine) 2 mg IVP Q4 PRN PRN Reason: Pain, severe (8-10) Last Admin: 11/09/17 15:46 Dose: 2 mg Olanzapine (Zyprexa) 5 mg PO HS [facility] Last Admin: 11/08/17 21:30 Dose: 5 mg Zolpidem Tartrate (Ambien) 5 mg PO HS PRN PRN Reason: Insomnia Physical Exam - Constitutional Appears: Non-toxic, No Acute Distress - Head Exam Head Exam: ATRAUMATIC, NORMOCEPHALIC - Eye Exam Eye Exam: Normal appearance - ENT Exam ENT Exam: Mucous Membranes Moist - Respiratory Exam Respiratory Exam: NORMAL BREATHING PATTERN - Cardiovascular Exam Cardiovascular Exam: REGULAR RHYTHM - GI/Abdominal Exam GI & Abdominal Exam: Soft. absent: Tenderness - Extremities Exam Extremities exam: Positive for: normal capillary refill. Negative for: calf tenderness Additional comments: large area of erythema over left hip with central raised area, I&D scar in the middle, no crepitus present - Back Exam Back exam: absent: CVA tenderness (L), CVA tenderness (R) - Neurological Exam Neurological exam: Alert, Oriented x3 - Psychiatric Exam Psychiatric exam: Normal Affect, Normal Mood - Skin Skin Exam: Dry, Erythema, Warm Results - Vital Signs Recent Vital Signs: Last Vital Signs Temp 98.4 F 11/09/17 08:31 Pulse 81 11/09/17 08:31 Resp 18 11/09/17 08:31 BP 114/71 11/09/17 08:31 Pulse Ox 96 11/09/17 08:31 - Labs Result Diagrams: 11/09/17 05:40 11/09/17 05:40 Labs: Laboratory Results - last 24 hr 11/08/17 11/09/17 11/09/17 15:25 05:40 05:40 WBC 13.3 H RBC 4.54 Hgb 14.1 Hct 42.3 MCV 93.2 D MCH 31.1 H MCHC 33.4 RDW 13.0 Plt Count 228 Sodium 138 Potassium 4.3 Chloride 104 Carbon Dioxide 27 Anion Gap 11 BUN 16 Creatinine 1.1 Est GFR ( Amer) > 60 Est GFR (Non-Af Amer) > 60 Random Glucose 93 Calcium 8.6 Triglycerides 147 Cholesterol 135 LDL Cholesterol Direct 59 HDL Cholesterol 35 Thyroxine (T4) 7.30 Total T3 0.805 L Urine Color Yellow Urine Clarity Slighty-cloudy Urine pH 6.0 Ur Specific [place] 1.018 Urine Protein Negative Urine Glucose (UA) Neg Urine Ketones Negative Urine Blood Small Urine Nitrate Negative Urine Bilirubin Negative Urine Urobilinogen 0.2-1.0 Ur Leukocyte Esterase Neg Urine RBC (Auto) 4 H Urine Microscopic WBC 1 Ur Squamous Epith Cells 5 Urine Bacteria Rare Hyaline Casts 0-2 Valproic Acid 11/09/17 11:07 WBC RBC Hgb Hct MCV MCH MCHC RDW Plt Count Sodium Potassium Chloride Carbon Dioxide Anion Gap BUN Creatinine Est GFR ( Amer) Est GFR (Non-Af Amer) Random Glucose Calcium Triglycerides Cholesterol LDL Cholesterol Direct HDL Cholesterol Thyroxine (T4) Total T3 Urine Color Urine Clarity Urine pH Ur Specific [place] Urine Protein Urine Glucose (UA) Urine Ketones Urine Blood Urine Nitrate Urine Bilirubin Urine Urobilinogen Ur Leukocyte Esterase Urine RBC (Auto) Urine Microscopic WBC Ur Squamous Epith Cells Urine Bacteria Hyaline Casts Valproic Acid < 10.0 L Assessment & Plan - Assessment and Plan (Free Text) Assessment: 61 M with left hip abscess s/p I&D POD#1 Plan: -Diet as tolerated -IVF -Continue IV Abx as per ID -I's & O's -f/u daily labs -Monitor for progression -Discussed with Dr. Jake Tijerina PGY2 - Date & Time Date: 11/09/17 Time: 15:30 <Jp Joseph - Last Filed: 11/10/17 13:56> History of Present Illness - History of Present Illness History of Present Illness: Patient was seen and examined at the bedside. Agree with resident's note above. Meds - Medications Medications: Current Medications Divalproex Sodium (Depakote Sprinkles) 125 mg PO HS [facility] Last Admin: 11/09/17 21:21 Dose: 125 mg Escitalopram Oxalate (Lexapro) 10 mg PO DAILY [facility] Last Admin: 11/10/17 08:32 Dose: 10 mg Piperacillin Sod/Tazobactam (Sod 3.375 gm/ Sodium Chloride) 100 mls @ 100 mls/ hr IVPB Q6 [facility] PRN Reason: Protocol Last Admin: 11/10/17 09:01 Dose: 100 mls/hr Vancomycin HCl 1 gm/ Sodium (Chloride) 250 mls @ 166.667 mls/hr IVPB Q12@0000, 1200 [facility] PRN Reason: Protocol Last Admin: 11/10/17 11:33 Dose: 166.667 mls/hr Levetiracetam (Keppra) 1,000 mg PO BID [facility] Last Admin: 11/10/17 08:31 Dose: 1,000 mg Morphine Sulfate (Morphine) 2 mg IVP Q4 PRN PRN Reason: Pain, severe (8-10) Last Admin: 11/10/17 08:35 Dose: 2 mg Olanzapine (Zyprexa) 5 mg PO HS [facility] Last Admin: 11/09/17 21:21 Dose: 5 mg Zolpidem Tartrate (Ambien) 5 mg PO HS PRN PRN Reason: Insomnia Results - Vital Signs Recent Vital Signs: Last Vital Signs Temp 97.9 F 11/10/17 08:06 Pulse 82 11/10/17 08:06 Resp 20 11/10/17 08:06 BP 103/65 11/10/17 08:06 Pulse Ox 98 11/10/17 08:06 - Labs Result Diagrams: 11/10/17 08:36 11/09/17 05:40 Labs: Laboratory Results - last 24 hr 11/10/17 11/10/17 06:30 08:36 WBC 10.5 RBC 4.63 Hgb 14.5 Hct 43.0 MCV 92.8 MCH 31.4 H MCHC 33.8 RDW 12.8 Plt Count 258 MPV 10.0 Neut % (Auto) 69.5 Lymph % (Auto) 18.4 L [place] % (Auto) 8.0 Eos % (Auto) 3.6 Baso % (Auto) 0.5 Neut # (Auto) 7.3 H Lymph # (Auto) 1.9 [place] # (Auto) 0.8 Eos # (Auto) 0.4 Baso # (Auto) 0.1 Vancomycin Trough 13.5 H - Imaging and Cardiology CT scan - pelvis Status: Image reviewed by me, Report reviewed by me Assessment & Plan - Assessment and Plan (Free Text) Plan: - Continue antibiotics - No general surgery intervention at present time - Repeat labs in am - pain control - Will follow
--- NOTE | 2017-11-09 16:36 | CP.PCM.HP ---
History of Present Illness - History of Present Illness History of Present Illness: CC: L hip pain. 61 y/o M, PMHx Bipolar Disorder, ETOH, SI, Depression, Seizure, came to [facility] on 11/08/17, to be evaluated for gradually increased L hip pain that began a week [employer] with no relief. As Pt described, Hx stated with a small pimple that he pop with some pus coming out, there after, pain start increasing gradually with burning sensation, constant, sharp, severe intensity 8-10:10, associated to swelling/ redness in the area, also fever/chills. In ER [facility] 100.9 F. Worsening symptoms: Found with large abscess on L hip on Abd/Pelv CT. Pt had I&D in the ER unit and was admitted. Aggravated factor: Movements, palpation in the I/D site. Pt denied: N/V/D, abdominal pain, urinary symptoms, CP, palpitations, syncope, dizziness, SOB, cough, sick contact, recent travel out of [place]. CXR: No active disease. Echo: Dilated Aortic root, LVEF 55-60%. R middle Lung Nodule on CT. Present on Admission - Present on Admission Any Indicators Present on Admission: No Review of Systems - Constitutional Constitutional: Chills, Fever - EENT Eyes: Other (negative) Ears: Other (negative) Nose/Mouth/Throat: Other (negative) - Cardiovascular Cardiovascular: Other (negative) - Respiratory Respiratory: Other (negative) - Gastrointestinal Gastrointestinal: Other (negative) - Genitourinary Genitourinary: Other (negative) - Musculoskeletal Musculoskeletal: Other (L hip pain) - Integumentary Integumentary: Swelling (L hip) - Neurological Neurological: Other (negative) - Psychiatric Psychiatric: Anxiety, Depression - Endocrine Endocrine: Other (negative) - Hematologic/Lymphatic Hematologic: Other (negative) Past Patient History - Past Medical History & Family History Past Medical History?: Yes - Past Social History Smoking Status: Former Smoker Alcohol: None Drugs: Other (Hx drug overdose.) Home Situation {Lives}: With Family - CARDIAC Hx Cardiac Disorders: Yes Hx Hypertension: Yes - PULMONARY Hx Tuberculosis: No - NEUROLOGICAL Hx Neurological Disorder: Yes Hx Seizures: Yes - HEENT Hx HEENT Problems: No - RENAL Hx Chronic Kidney Disease: No - ENDOCRINE/METABOLIC Hx Endocrine Disorders: Yes - HEMATOLOGICAL/ONCOLOGICAL Hx Blood Disorders: No Hx Cancer: No - INTEGUMENTARY Hx Dermatological Problems: No - MUSCULOSKELETAL/RHEUMATOLOGICAL Hx Musculoskeletal Disorders: No Hx Falls: No - GASTROINTESTINAL Hx Gastrointestinal Disorders: No - GENITOURINARY/GYNECOLOGICAL Hx Genitourinary Disorders: No - PSYCHIATRIC Hx Psychophysiologic Disorder: Yes Hx Anxiety: Yes Hx Depression: Yes Hx Substance Use: No - SURGICAL HISTORY Hx Surgeries: Yes Hx Appendectomy: Yes Hx Cholecystectomy: Yes - ANESTHESIA Hx Anesthesia: Yes Hx Anesthesia Reactions: No Hx Malignant Hyperthermia: No Meds Home Medications: Home Medication List Medication Instructions Recorded Confirmed Type Cephalexin [Keflex] 500 mg PO QID #28 capsule 11/08/17 Rx Naproxen 375 mg PO Q8 PRN #21 tablet 11/08/17 Rx Sulfamethoxazole/Trimethoprim 2 tab PO BID #28 tab 11/08/17 Rx [Bactrim DS 800 mg-160 mg] Allergies/Adverse Reactions: Allergies Allergy/AdvReac Type Severity Reaction Status Date / Time paroxetine HCl [From Paxil] Allergy dyskinesia Verified 11/08/17 12:25 like phenytoin sodium Allergy SWELLING Verified 11/08/17 12:24 [From Dilantin] phenytoin sodium extended Allergy SWELLING Verified 11/08/17 12:24 [From Dilantin] haloperidol [From Haldol] AdvReac SWELLING Verified 11/08/17 12:24 Physical Exam - Constitutional Appears: No Acute Distress - Head Exam Head Exam: NORMAL INSPECTION - Eye Exam Eye Exam: PERRL - ENT Exam ENT Exam: Normal Exam - Neck Exam Neck exam: Positive for: Normal Inspection - Respiratory Exam Respiratory Exam: Clear to Auscultation Bilateral - Cardiovascular Exam Cardiovascular Exam: REGULAR RHYTHM - GI/Abdominal Exam GI & Abdominal Exam: Normal Bowel Sounds, Soft - Extremities Exam Extremities exam: Positive for: tenderness (L hip, with induration, sweeling with surrounding erythema, open from I&D.) - Back Exam Back exam: NORMAL INSPECTION - Neurological Exam Neurological exam: Alert, Oriented x3 Additional comments: No motor/sensory deficit. - Psychiatric Exam Psychiatric exam: Anxious, Depressed - Skin Skin Exam: Warm Results - Vital Signs Recent Vital Signs: Last Vital Signs Temp 98.4 F 11/09/17 08:31 Pulse 81 11/09/17 08:31 Resp 18 11/09/17 08:31 BP 114/71 11/09/17 08:31 Pulse Ox 96 11/09/17 08:31 reviewed J.P. - Labs Result Diagrams: 11/11/17 04:45 11/09/17 05:40 Labs: Laboratory Results - last 24 hr 11/09/17 11/09/17 11/09/17 05:40 05:40 11:07 WBC 13.3 H RBC 4.54 Hgb 14.1 Hct 42.3 MCV 93.2 D MCH 31.1 H MCHC 33.4 RDW 13.0 Plt Count 228 Sodium 138 Potassium 4.3 Chloride 104 Carbon Dioxide 27 Anion Gap 11 BUN 16 Creatinine 1.1 Est GFR ( Amer) > 60 Est GFR (Non-Af Amer) > 60 Random Glucose 93 Calcium 8.6 Triglycerides 147 Cholesterol 135 LDL Cholesterol Direct 59 HDL Cholesterol 35 Thyroxine (T4) 7.30 Total T3 0.805 L Valproic Acid < 10.0 L reviewed J.P. - EKG Data EKG comments: reviewed J.P. - Impressions Impression: Echo: Reviewed J.P. - Imaging and Cardiology Chest x-ray Status: Report reviewed by me (Tati) CT scan - abdomen Status: Report reviewed by me (Tati) CT scan - pelvis Status: Report reviewed by me (Tati) Assessment & Plan (1) Abscess of left hip Status: Acute Priority: High (2) Status post incision and drainage Status: Acute Priority: High (3) Cellulitis of left hip Status: Acute Priority: High (4) Bipolar disorder, now depressed Status: Acute - Assessment and Plan (Free Text) Plan: F/U U C-S, Wound C-S, Blood C-S Continue Zosyn, Vanco, Morphine, Depakote, Lexapro and rest of Tx. Surgery and ID consult appreciated. Neurology consult - Date & Time Date: 11/09/17 Time: 12:20
--- NOTE | 2017-11-09 16:37 | CARD ---
APPROVED REPORT Date of service: 11/09/2017 EXAM: Two-dimensional and M-mode echocardiogram with Doppler and color Doppler. Other Information Quality : AverageRhythm : NSR Technically limited study due to Pt unable to rotate,for better window. INDICATION Pre-Op 2D DIMENSIONS LVDd4.27 (3.9-5.9cm)PWd0.94 (0.7-1.1cm) IVSs1.49 (0.8-1.2cm)LVDs2.51 (2.5-4.0cm) FS (%) 41.1 %PWs1.46 (0.8-1.2cm) M-Mode DIMENSIONS Left Atrium (MM)3.44 (2.5-4.0cm)IVSd1.12 (0.7-1.1cm) Aortic Root3.90 (2.2-3.7cm)LVDd5.53 (4.0-5.6cm) Aortic Cusp Exc.2.68 (1.5-2.0cm)PWd1.10 (0.7-1.1cm) IVSs1.47 cmFS (%) 39 % LVDs3.35 (2.0-3.8cm)PWs1.71 cm Aortic Valve AoV Peak Ckvderek659.3cm/sAoV VTI18.1cmAO Peak GR.4mmHg LVOT Peak Tzuhyeyb34.5cm/sLVOT VTI11.59cmAO Mean GR.2mmHg Mitral Valve MV E Hjicehkz76.3cm/sMV DECEL [id number] A Esjekoaw01.2cm/s MV HVF84ijL/A ratio0.9MVA (PHT)2.65cm2 TDI Lateral E' Peak V10.02cm/sMedial E' Peak V6.52cm/sE/Lateral E'5.7 E/Medial E'8.8 LEFT VENTRICLE The left ventricle is normal size. There is normal left ventricular wall thickness. The left ventricular systolic function is normal. The estimated ejection fraction is 55-60% No regional wall motion abnormalities noted.. Transmitral Doppler flow pattern is Grade I-abnormal relaxation pattern. No left ventricle thrombus noted on this study. There is no ventricular septal defect visualized. There is no mass noted in the left ventricle. RIGHT VENTRICLE The right ventricle is normal size. There is normal right ventricular wall thickness. The right ventricular systolic function is normal. ATRIA The left atrium size is normal. The right atrium size is normal. The interatrial septum is intact with no evidence for an atrial septal defect. AORTIC VALVE The aortic valve is normal in structure. No aortic regurgitation is present. There is no aortic valvular stenosis. MITRAL VALVE The mitral valve is normal in structure. There is no mitral valve stenosis. There is no mitral valve regurgitation noted. TRICUSPID VALVE The tricuspid valve is normal in structure. There is no tricuspid valve regurgitation noted. PULMONIC VALVE The pulmonary valve is normal in structure. There is no pulmonic valvular regurgitation. GREAT VESSELS The aortic root is mildly dilated The ascending aorta is normal in size. The pulmonary artery is normal. The IVC is normal in size and collapses >50% with inspiration. PERICARDIAL EFFUSION There is no pericardial effusion. <Conclusion> Dilated aortic root Normal LV systolic function with doppler hemodynamics consistent with abnormal relaxation The estimated ejection fraction is 55-60%
[2017-11-09] MEDS: Divalproex 125 mg Sprinkle Capsule PO SCH (21:21)
[2017-11-10] MEDS: Piperacillin/Tazobact 3.375 GM in Sodium Chloride 0.9% 100 ML IVPB SCH ×4 (04:21→21:18)
--- NOTE | 2017-11-10 07:18 | CARD ---
APPROVED REPORT Date of service: 11/09/2017 EKG Measurement Heart [id number] <Conclusion> Normal sinus rhythm Normal ECG
--- NOTE | 2017-11-10 08:21 | CP.PCM.PN ---
<Jillian Jarquin - Last Filed: 11/10/17 08:17> Subjective - Date & Time of Evaluation Date of Evaluation: 11/10/17 Time of Evaluation: 08:17 - Subjective Subjective: Surgery: Dr. Joseph Pt seen and examined. No acute overnight events. Pt states he is feeling better this morning but still having pain around the abscess on his Left hip. He states he has been having drainage from the site and denies fevers/chills. Tolerating diet without other complaints at this time. Objective - Vital Signs/Intake and Output Vital Signs (last 24 hours): Temp Pulse Resp BP Pulse Ox 97.9 F 82 20 103/65 98 11/10/17 08:06 11/10/17 08:06 11/10/17 08:06 11/10/17 08:06 11/10/17 08:06 - Medications Medications: Current Medications Divalproex Sodium (Depakote Sprinkles) 125 mg PO HS [facility] Last Admin: 11/09/17 21:21 Dose: 125 mg Escitalopram Oxalate (Lexapro) 10 mg PO DAILY [facility] Last Admin: 11/09/17 08:00 Dose: 10 mg Piperacillin Sod/Tazobactam (Sod 3.375 gm/ Sodium Chloride) 100 mls @ 100 mls/ hr IVPB Q6 [facility] PRN Reason: Protocol Last Admin: 11/10/17 04:21 Dose: 100 mls/hr Vancomycin HCl 1 gm/ Sodium (Chloride) 250 mls @ 166.667 mls/hr IVPB Q12@0000, 1200 [facility] PRN Reason: Protocol Last Admin: 11/10/17 00:32 Dose: 166.667 mls/hr Levetiracetam (Keppra) 1,000 mg PO BID [facility] Last Admin: 11/09/17 15:59 Dose: 1,000 mg Morphine Sulfate (Morphine) 2 mg IVP Q4 PRN PRN Reason: Pain, severe (8-10) Last Admin: 11/09/17 21:30 Dose: 2 mg Olanzapine (Zyprexa) 5 mg PO HS [facility] Last Admin: 11/09/17 21:21 Dose: 5 mg Zolpidem Tartrate (Ambien) 5 mg PO HS PRN PRN Reason: Insomnia - Labs Labs: 11/09/17 05:40 11/09/17 05:40 - Constitutional Appears: Well, No Acute Distress - Head Exam Head Exam: NORMOCEPHALIC - Eye Exam Eye Exam: Normal appearance - ENT Exam ENT Exam: Mucous Membranes Moist - Respiratory Exam Respiratory Exam: NORMAL BREATHING PATTERN - Cardiovascular Exam Cardiovascular Exam: RRR - GI/Abdominal Exam GI & Abdominal Exam: Soft - Extremities Exam Additional comments: Left lateral hip with 3x2 cm abscess cavity s/p drainage; surrounding erythema/ cellulitis, purulent discharge expressed from wound. - Neurological Exam Neurological Exam: Alert, Awake, Oriented x3 - Skin Skin Exam: Dry, Warm Assessment and Plan - Assessment and Plan (Free Text) Assessment: 61M with L lateral hip abscess s/p I&D in the ER Plan: - cont to monitor as abscess cavity is open and draining - cont ABX - no further surgical intervention needed at this time - further recs per Dr. Jake Jarquin <Jp Joseph - Last Filed: 11/10/17 14:09> Subjective - Date & Time of Evaluation Time of Evaluation: 13:15 - Subjective Subjective: Patient was seen and examined at the bedside. Agree with resident's note above. Objective - Vital Signs/Intake and Output Vital Signs (last 24 hours): Temp Pulse Resp BP Pulse Ox 97.9 F 82 20 103/65 98 11/10/17 08:06 11/10/17 08:06 11/10/17 08:06 11/10/17 08:06 11/10/17 08:06 - Medications Medications: Current Medications Divalproex Sodium (Depakote Sprinkles) 125 mg PO HS [facility] Last Admin: 11/09/17 21:21 Dose: 125 mg Escitalopram Oxalate (Lexapro) 10 mg PO DAILY [facility] Last Admin: 11/10/17 08:32 Dose: 10 mg Piperacillin Sod/Tazobactam (Sod 3.375 gm/ Sodium Chloride) 100 mls @ 100 mls/ hr IVPB Q6 [facility] PRN Reason: Protocol Last Admin: 11/10/17 09:01 Dose: 100 mls/hr Vancomycin HCl 1 gm/ Sodium (Chloride) 250 mls @ 166.667 mls/hr IVPB Q12@0000, 1200 [facility] PRN Reason: Protocol Last Admin: 11/10/17 11:33 Dose: 166.667 mls/hr Levetiracetam (Keppra) 1,000 mg PO BID [facility] Last Admin: 11/10/17 08:31 Dose: 1,000 mg Morphine Sulfate (Morphine) 2 mg IVP Q4 PRN PRN Reason: Pain, severe (8-10) Last Admin: 11/10/17 08:35 Dose: 2 mg Olanzapine (Zyprexa) 5 mg PO HS [facility] Last Admin: 11/09/17 21:21 Dose: 5 mg Zolpidem Tartrate (Ambien) 5 mg PO HS PRN PRN Reason: Insomnia - Labs Labs: 11/10/17 08:36 11/09/17 05:40 Assessment and Plan - Assessment and Plan (Free Text) Plan: - Continue antibiotics as per ID - Repeat labs in am - Will follow
[2017-11-10 09:37] LABS: BASO # 0.1 K/uL (0.0-0.2); BASO % 0.5 % (0.0-2.0); EOS # 0.4 K/uL (0.0-0.7); EOS % 3.6 % (0.0-4.0); HEMOGLOBIN 14.5 g/dL (12.0-18.0); LYMPH # 1.9 K/uL (1.0-4.3); LYMPH % 18.4 % (20.0-40.0); MEAN CELL VOLUME 92.8 fl (80.0-94.0); MEAN CORPUSCULAR HEMOGLOBIN 31.4 pg (27.0-31.0); MEAN CORPUSCULAR HGB CONC 33.8 g/dL (33.0-37.0); MONO # 0.8 K/uL (0.0-0.8); NEUT # 7.3 K/uL (1.8-7.0); NEUT % 69.5 % (50.0-75.0); NRBC % 0.1 % (0.0-0.0); RBC 4.63 Mil/uL (4.40-5.90); RED CELL DISTRIBUTION WIDTH 12.8 % (11.5-14.5); WHITE BLOOD COUNT 10.5 K/uL (4.8-10.8)
--- NOTE | 2017-11-10 15:25 | CP.PCM.PN ---
Subjective - Date & Time of Evaluation Date of Evaluation: 11/10/17 Time of Evaluation: 11:40 - Subjective Subjective: F/U Abscess L Hip, s/p I& Minimal pain in L hip now, on Morphine. Objective - Vital Signs/Intake and Output Vital Signs (last 24 hours): Temp Pulse Resp BP Pulse Ox 97.9 F 82 20 103/65 98 11/10/17 08:06 11/10/17 08:06 11/10/17 08:06 11/10/17 08:06 11/10/17 08:06 - Medications Medications: Current Medications Divalproex Sodium (Depakote Sprinkles) 125 mg PO HS [facility] Last Admin: 11/09/17 21:21 Dose: 125 mg Escitalopram Oxalate (Lexapro) 10 mg PO DAILY [facility] Last Admin: 11/10/17 08:32 Dose: 10 mg Piperacillin Sod/Tazobactam (Sod 3.375 gm/ Sodium Chloride) 100 mls @ 100 mls/ hr IVPB Q6 [facility] PRN Reason: Protocol Last Admin: 11/10/17 09:01 Dose: 100 mls/hr Vancomycin HCl 1 gm/ Sodium (Chloride) 250 mls @ 166.667 mls/hr IVPB Q12@0000, 1200 [facility] PRN Reason: Protocol Last Admin: 11/10/17 11:33 Dose: 166.667 mls/hr Levetiracetam (Keppra) 1,000 mg PO BID [facility] Last Admin: 11/10/17 08:31 Dose: 1,000 mg Morphine Sulfate (Morphine) 2 mg IVP Q4 PRN PRN Reason: Pain, severe (8-10) Last Admin: 11/10/17 08:35 Dose: 2 mg Olanzapine (Zyprexa) 5 mg PO HS [facility] Last Admin: 11/09/17 21:21 Dose: 5 mg Zolpidem Tartrate (Ambien) 5 mg PO HS PRN PRN Reason: Insomnia - Labs Labs: 11/10/17 08:36 11/09/17 05:40 - Constitutional Appears: No Acute Distress - Head Exam Head Exam: NORMAL INSPECTION - Eye Exam Eye Exam: PERRL - ENT Exam ENT Exam: Normal Exam - Neck Exam Neck Exam: Normal Inspection - Respiratory Exam Respiratory Exam: Clear to Ausculation Bilateral - Cardiovascular Exam Cardiovascular Exam: REGULAR RHYTHM - GI/Abdominal Exam GI & Abdominal Exam: Soft, Normal Bowel Sounds - Extremities Exam Extremities Exam: Tenderness (L hip with induration, swelling with surrounding erythema, open from I&D) - Back Exam Back Exam: NORMAL INSPECTION - Neurological Exam Neurological Exam: Alert, Oriented x3. absent: Motor Sensory Deficit - Psychiatric Exam Psychiatric exam: Anxious, Depressed - Skin Skin Exam: Warm Assessment and Plan (1) Abscess of left hip Status: Acute (2) Cellulitis of left hip Status: Acute (3) Bipolar disorder, now depressed Status: Acute - Assessment and Plan (Free Text) Plan: Continue Zosyn, Vanco and rest of Tx.
[2017-11-10] MEDS: Divalproex 125 mg Sprinkle Capsule PO SCH (21:19)
[2017-11-11] MEDS: Piperacillin/Tazobact 3.375 GM in Sodium Chloride 0.9% 100 ML IVPB SCH ×2 (04:31→09:23)
[2017-11-11 06:15] LABS: HEMOGLOBIN 14.2 g/dL (12.0-18.0); MEAN CORPUSCULAR HEMOGLOBIN 31.8 pg (27.0-31.0); MEAN CORPUSCULAR HGB CONC 34.2 g/dL (33.0-37.0); RBC 4.48 Mil/uL (4.40-5.90); RED CELL DISTRIBUTION WIDTH 12.8 % (11.5-14.5); WHITE BLOOD COUNT 7.9 K/uL (4.8-10.8)
--- NOTE | 2017-11-11 07:46 | CP.PCM.PN ---
<BrittonJillian - Last Filed: 11/11/17 07:43> Subjective - Date & Time of Evaluation Date of Evaluation: 11/11/17 Time of Evaluation: 07:43 - Subjective Subjective: Surgery: Dr. Joseph Pt seen and examined. No acute overnight events. States he feels better today and pain is a bit improved around the Left hip cellulitis. He is tolerating his diet and denies nausea/vomiting, fevers/chills. Objective - Vital Signs/Intake and Output Vital Signs (last 24 hours): Temp Pulse Resp BP Pulse Ox 98.8 F 69 18 101/66 95 11/11/17 00:57 11/11/17 00:57 11/11/17 00:57 11/11/17 00:57 11/11/17 00:57 - Medications Medications: Current Medications Divalproex Sodium (Depakote Sprinkles) 125 mg PO HS [facility] Last Admin: 11/10/17 21:19 Dose: 125 mg Escitalopram Oxalate (Lexapro) 10 mg PO DAILY [facility] Last Admin: 11/10/17 08:32 Dose: 10 mg Piperacillin Sod/Tazobactam (Sod 3.375 gm/ Sodium Chloride) 100 mls @ 100 mls/ hr IVPB Q6 [facility] PRN Reason: Protocol Last Admin: 11/11/17 04:31 Dose: 100 mls/hr Vancomycin HCl 1 gm/ Sodium (Chloride) 250 mls @ 166.667 mls/hr IVPB Q12@0000, 1200 [facility] PRN Reason: Protocol Last Admin: 11/11/17 00:17 Dose: 166.667 mls/hr Levetiracetam (Keppra) 1,000 mg PO BID [facility] Last Admin: 11/10/17 16:01 Dose: 1,000 mg Morphine Sulfate (Morphine) 2 mg IVP Q4 PRN PRN Reason: Pain, severe (8-10) Last Admin: 11/10/17 22:03 Dose: 2 mg Olanzapine (Zyprexa) 5 mg PO HS [facility] Last Admin: 11/10/17 21:19 Dose: 5 mg Zolpidem Tartrate (Ambien) 5 mg PO HS PRN PRN Reason: Insomnia - Labs Labs: 11/11/17 04:45 11/09/17 05:40 - Constitutional Appears: Well, No Acute Distress - Head Exam Head Exam: ATRAUMATIC, NORMOCEPHALIC - Eye Exam Eye Exam: Normal appearance - ENT Exam ENT Exam: Mucous Membranes Moist - Respiratory Exam Respiratory Exam: NORMAL BREATHING PATTERN - Cardiovascular Exam Cardiovascular Exam: RRR - GI/Abdominal Exam GI & Abdominal Exam: Soft. absent: Tenderness - Extremities Exam Additional comments: Left hip with cellulitis around abscess drainage site, erythema slightly improved from prior exam - Neurological Exam Neurological Exam: Alert, Awake, Oriented x3 - Skin Skin Exam: Dry, Warm Assessment and Plan - Assessment and Plan (Free Text) Assessment: 61M with L lateral hip abscess s/p I&D in the ER Plan: - cont ABX - keep area clean with daily dressing changes PRN - no plan for further surgical intervention - d/w Dr. Jake Jarquin <Jp Joseph - Last Filed: 11/11/17 16:49> Subjective - Date & Time of Evaluation Time of Evaluation: 16:05 - Subjective Subjective: Patient was seen and examined at the bedside. Agree with resident's note above. Objective - Vital Signs/Intake and Output Vital Signs (last 24 hours): Temp Pulse Resp BP Pulse Ox 98.3 F 67 20 113/72 96 11/11/17 07:43 11/11/17 07:43 11/11/17 07:43 11/11/17 07:43 11/11/17 07:43 - Medications Medications: Current Medications Divalproex Sodium (Depakote Sprinkles) 125 mg PO HS [facility] Last Admin: 11/10/17 21:19 Dose: 125 mg Escitalopram Oxalate (Lexapro) 10 mg PO DAILY [facility] Last Admin: 11/11/17 08:00 Dose: 10 mg Cefazolin Sodium 2 gm/ Sodium (Chloride) 100 mls @ 100 mls/hr IVPB Q8 [facility] PRN Reason: Protocol Last Admin: 11/11/17 16:08 Dose: 100 mls/hr Levetiracetam (Keppra) 1,000 mg PO BID [facility] Last Admin: 11/11/17 16:08 Dose: 1,000 mg Morphine Sulfate (Morphine) 2 mg IVP Q4 PRN PRN Reason: Pain, severe (8-10) Last Admin: 11/11/17 16:08 Dose: 2 mg Olanzapine (Zyprexa) 5 mg PO [facility] Last Admin: 11/10/17 21:19 Dose: 5 mg Zolpidem Tartrate (Ambien) 5 mg PO HS PRN PRN Reason: Insomnia - Labs Labs: 11/11/17 04:45 11/09/17 05:40 Assessment and Plan - Assessment and Plan (Free Text) Plan: - Will follow
--- NOTE | 2017-11-11 12:50 | CP.PCM.PN ---
Subjective - Date & Time of Evaluation Date of Evaluation: 11/11/17 Time of Evaluation: 07:00 - Subjective Subjective: 61M with L lateral hip abscess s/p I&D in the ER Objective - Vital Signs/Intake and Output Vital Signs (last 24 hours): Temp Pulse Resp BP Pulse Ox 98.3 F 67 20 113/72 96 11/11/17 07:43 11/11/17 07:43 11/11/17 07:43 11/11/17 07:43 11/11/17 07:43 - Medications Medications: Current Medications Divalproex Sodium (Depakote Sprinkles) 125 mg PO HS [facility] Last Admin: 11/10/17 21:19 Dose: 125 mg Escitalopram Oxalate (Lexapro) 10 mg PO DAILY [facility] Last Admin: 11/11/17 08:00 Dose: 10 mg Piperacillin Sod/Tazobactam (Sod 3.375 gm/ Sodium Chloride) 100 mls @ 100 mls/ hr IVPB Q6 [facility] PRN Reason: Protocol Last Admin: 11/11/17 09:23 Dose: 100 mls/hr Vancomycin HCl 1 gm/ Sodium (Chloride) 250 mls @ 166.667 mls/hr IVPB Q12@0000, 1200 [facility] PRN Reason: Protocol Last Admin: 11/11/17 11:50 Dose: 166.667 mls/hr Levetiracetam (Keppra) 1,000 mg PO BID [facility] Last Admin: 11/11/17 08:00 Dose: 1,000 mg Morphine Sulfate (Morphine) 2 mg IVP Q4 PRN PRN Reason: Pain, severe (8-10) Last Admin: 11/11/17 08:03 Dose: 2 mg Olanzapine (Zyprexa) 5 mg PO HS [facility] Last Admin: 11/10/17 21:19 Dose: 5 mg Zolpidem Tartrate (Ambien) 5 mg PO HS PRN PRN Reason: Insomnia - Labs Labs: 11/11/17 04:45 11/09/17 05:40 - Constitutional Appears: Non-toxic, Chronically Ill - Head Exam Head Exam: NORMOCEPHALIC - Eye Exam Eye Exam: PERRL - ENT Exam ENT Exam: Mucous Membranes Dry - Neck Exam Neck Exam: absent: Lymphadenopathy - Respiratory Exam Respiratory Exam: Decreased Breath Sounds - Cardiovascular Exam Cardiovascular Exam: REGULAR RHYTHM - GI/Abdominal Exam GI & Abdominal Exam: Distended - Rectal Exam Rectal Exam: Deferred - Exam Exam: NORMAL INSPECTION - Extremities Exam Extremities Exam: Tenderness. absent: Calf Tenderness, Pedal Edema Additional comments: leftr hip tender warm swollen - Back Exam Back Exam: absent: CVA tenderness (L), CVA tenderness (R) - Neurological Exam Neurological Exam: Alert, Awake, Oriented x3 - Psychiatric Exam Psychiatric exam: Normal Mood Assessment and Plan (1) Abscess Status: Acute (2) Cellulitis of left hip Status: Acute (3) Alcohol use disorder, severe, dependence Status: Acute (4) Bipolar disorder, now depressed Status: Acute - Assessment and Plan (Free Text) Assessment: MSSA from wound culture cont iv rx wound care and surgical follow up no need for IV Vanco / Zosyn switch to IV Ancef
[2017-11-11] MEDS: ceFAZolin 2 GM in Sodium Chloride 0.9% 100 ML IVPB SCH ×2 (12:58→16:08)
--- NOTE | 2017-11-11 15:54 | CP.PCM.PN ---
Subjective - Date & Time of Evaluation Date of Evaluation: 11/11/17 Time of Evaluation: 10:50 - Subjective Subjective: F/U L hip abscess, s/p I & D. Less terri in the L hip Objective - Vital Signs/Intake and Output Vital Signs (last 24 hours): Temp Pulse Resp BP Pulse Ox 98.3 F 67 20 113/72 96 11/11/17 07:43 11/11/17 07:43 11/11/17 07:43 11/11/17 07:43 11/11/17 07:43 - Medications Medications: Current Medications Divalproex Sodium (Depakote Sprinkles) 125 mg PO HS [facility] Last Admin: 11/10/17 21:19 Dose: 125 mg Escitalopram Oxalate (Lexapro) 10 mg PO DAILY [facility] Last Admin: 11/11/17 08:00 Dose: 10 mg Cefazolin Sodium 2 gm/ Sodium (Chloride) 100 mls @ 100 mls/hr IVPB Q8 [facility] PRN Reason: Protocol Last Admin: 11/11/17 12:58 Dose: Not Given Levetiracetam (Keppra) 1,000 mg PO BID [facility] Last Admin: 11/11/17 08:00 Dose: 1,000 mg Morphine Sulfate (Morphine) 2 mg IVP Q4 PRN PRN Reason: Pain, severe (8-10) Last Admin: 11/11/17 08:03 Dose: 2 mg Olanzapine (Zyprexa) 5 mg PO HS [facility] Last Admin: 11/10/17 21:19 Dose: 5 mg Zolpidem Tartrate (Ambien) 5 mg PO HS PRN PRN Reason: Insomnia - Labs Labs: 11/11/17 04:45 11/09/17 05:40 - Constitutional Appears: No Acute Distress - Head Exam Head Exam: NORMAL INSPECTION - Eye Exam Eye Exam: PERRL - ENT Exam ENT Exam: Normal Exam - Neck Exam Neck Exam: Normal Inspection - Respiratory Exam Respiratory Exam: Clear to Ausculation Bilateral - Cardiovascular Exam Cardiovascular Exam: REGULAR RHYTHM - GI/Abdominal Exam GI & Abdominal Exam: Soft, Normal Bowel Sounds - Extremities Exam Extremities Exam: Tenderness (L hip, swelling with surraunding erythema, open from I&D) - Back Exam Back Exam: NORMAL INSPECTION - Neurological Exam Neurological Exam: Alert, Oriented x3. absent: Motor Sensory Deficit - Psychiatric Exam Psychiatric exam: Anxious, Depressed - Skin Skin Exam: Warm Assessment and Plan (1) Abscess of left hip Status: Acute (2) Cellulitis of left hip Status: Acute (3) Bipolar disorder, now depressed Status: Acute - Assessment and Plan (Free Text) Plan: Continue Cefazolin, Morphine and rest of Tx.
[2017-11-11] MEDS: Divalproex 125 mg Sprinkle Capsule PO SCH (21:02)
[2017-11-12] MEDS: ceFAZolin 2 GM in Sodium Chloride 0.9% 100 ML IVPB SCH ×2 (01:29→08:57)
[2017-11-12 06:34] LABS: BASO # 0.1 K/uL (0.0-0.2); BASO % 0.9 % (0.0-2.0); EOS # 0.4 K/uL (0.0-0.7); EOS % 5.9 % (0.0-4.0); HEMOGLOBIN 13.6 g/dL (12.0-18.0); LYMPH # 1.9 K/uL (1.0-4.3); LYMPH % 26.6 % (20.0-40.0); MEAN CELL VOLUME 92.7 fl (80.0-94.0); MEAN CORPUSCULAR HGB CONC 34.6 g/dL (33.0-37.0); MEAN PLATELET VOLUME 9.4 fl (7.2-11.7); MONO # 0.6 K/uL (0.0-0.8); MONO % 8.9 % (0.0-10.0); NEUT # 4.2 K/uL (1.8-7.0); NEUT % 57.7 % (50.0-75.0); NRBC % 0.1 % (0.0-0.0); RBC 4.24 Mil/uL (4.40-5.90); RED CELL DISTRIBUTION WIDTH 12.8 % (11.5-14.5); WHITE BLOOD COUNT 7.3 K/uL (4.8-10.8)
--- NOTE | 2017-11-12 08:51 | CP.PCM.PN ---
<Jillian Jarquin - Last Filed: 11/12/17 08:48> Subjective - Date & Time of Evaluation Date of Evaluation: 11/12/17 Time of Evaluation: 07:00 - Subjective Subjective: Surgery: Dr. Joseph Pt seen and examined. No acute events overnight. Pt states he feels well, his pain is much improved and he denies other complaints at this time. He is tolerating a regular diet and denies N/V, fevers/chills. Objective - Vital Signs/Intake and Output Vital Signs (last 24 hours): Temp Pulse Resp BP Pulse Ox 98 F 70 20 120/84 97 11/12/17 01:05 11/12/17 01:05 11/12/17 01:05 11/12/17 01:05 11/12/17 01:05 - Medications Medications: Current Medications Divalproex Sodium (Depakote Sprinkles) 125 mg PO HS [facility] Last Admin: 11/11/17 21:02 Dose: 125 mg Escitalopram Oxalate (Lexapro) 10 mg PO DAILY [facility] Last Admin: 11/11/17 08:00 Dose: 10 mg Cefazolin Sodium 2 gm/ Sodium (Chloride) 100 mls @ 100 mls/hr IVPB Q8 [facility] PRN Reason: Protocol Last Admin: 11/12/17 01:29 Dose: 100 mls/hr Levetiracetam (Keppra) 1,000 mg PO BID [facility] Last Admin: 11/11/17 16:08 Dose: 1,000 mg Morphine Sulfate (Morphine) 2 mg IVP Q4 PRN PRN Reason: Pain, severe (8-10) Last Admin: 11/12/17 01:34 Dose: 2 mg Olanzapine (Zyprexa) 5 mg PO HS [facility] Last Admin: 11/11/17 21:02 Dose: 5 mg Zolpidem Tartrate (Ambien) 5 mg PO HS PRN PRN Reason: Insomnia - Labs Labs: 11/12/17 05:50 11/09/17 05:40 - Constitutional Appears: Well, No Acute Distress - Head Exam Head Exam: ATRAUMATIC, NORMOCEPHALIC - Eye Exam Eye Exam: Normal appearance - Respiratory Exam Respiratory Exam: NORMAL BREATHING PATTERN - Cardiovascular Exam Cardiovascular Exam: RRR - GI/Abdominal Exam GI & Abdominal Exam: Soft. absent: Tenderness - Extremities Exam Additional comments: L lateral hip with cellulitis around the open abscess cavity; erythema improved from prior exam. + tenderness to palpation - Neurological Exam Neurological Exam: Alert, Awake, Oriented x3 - Skin Skin Exam: Dry, Warm Assessment and Plan - Assessment and Plan (Free Text) Assessment: 61M with L later hip abscess s/p I&D in the ER Plan: - cont ABx per ID recs - Rec switching to PO ABX so pt can be DC home - local wound care PRN - d/w Dr. Jake Jarquin <Jp Joseph - Last Filed: 11/12/17 16:54> Subjective - Date & Time of Evaluation Time of Evaluation: 16:10 - Subjective Subjective: Patient was seen and examined at the bedside. Agree with resident's note above. Objective - Vital Signs/Intake and Output Vital Signs (last 24 hours): Temp Pulse Resp BP Pulse Ox 98.1 F 61 18 138/90 98 11/12/17 16:23 11/12/17 16:23 11/12/17 16:23 11/12/17 16:23 11/12/17 16:23 - Medications Medications: Current Medications Divalproex Sodium (Depakote Sprinkles) 125 mg PO HS [facility] Last Admin: 11/11/17 21:02 Dose: 125 mg Escitalopram Oxalate (Lexapro) 10 mg PO DAILY [facility] Last Admin: 11/12/17 08:55 Dose: 10 mg Cefazolin Sodium 2 gm/ Sodium (Chloride) 100 mls @ 100 mls/hr IVPB Q8 [facility] PRN Reason: Protocol Last Admin: 11/12/17 08:57 Dose: 100 mls/hr Levetiracetam (Keppra) 1,000 mg PO BID [facility] Last Admin: 11/12/17 08:54 Dose: 1,000 mg Morphine Sulfate (Morphine) 2 mg IVP Q4 PRN PRN Reason: Pain, severe (8-10) Last Admin: 11/12/17 01:34 Dose: 2 mg Olanzapine (Zyprexa) 5 mg PO HS [facility] Last Admin: 11/11/17 21:02 Dose: 5 mg Zolpidem Tartrate (Ambien) 5 mg PO HS PRN PRN Reason: Insomnia - Labs Labs: 11/12/17 05:50 11/09/17 05:40 Assessment and Plan - Assessment and Plan (Free Text) Plan: - Clear for discharge home from general surgery stand point
[2017-11-12 16:23] VITALS: BP 138/90; PULSE 61; RESP 18; TEMP 98.1; O2SAT 98
--- NOTE | 2017-11-12 20:24 | CP.PCM.DIS ---
Provider - Provider Date of Admission: 11/08/17 16:13 Attending physician: Timothy Abreu MD Diagnosis - Discharge Diagnosis (1) Abscess of left hip Status: Acute Priority: High (2) Cellulitis of left hip Status: Acute Priority: High (3) Bipolar disorder, now depressed Status: Acute Hospital Course - Lab Results Lab Results: Micro Results 11/09/17 11:07 Blood-Venous Blood Culture - Preliminary NO GROWTH AFTER 3 DAYS 11/08/17 15:25 Urine,Clean Catch Urine Culture - Final No Growth (<1,000 CFU/ML) 11/08/17 13:48 Abscess - Buttock-Left Gram Stain - Final 11/08/17 13:48 Abscess - Buttock-Left Wound Culture - Final Staphylococcus Aureus Most Recent Lab Values WBC 7.3 K/uL (4.8-10.8) 11/12/17 05:50 RBC 4.24 Mil/uL (4.40-5.90) L 11/12/17 05:50 Hgb 13.6 g/dL (12.0-18.0) 11/12/17 05:50 Hct 39.3 % (35.0-51.0) 11/12/17 05:50 MCV 92.7 fl (80.0-94.0) 11/12/17 05:50 MCH 32.0 pg (27.0-31.0) H 11/12/17 05:50 MCHC 34.6 g/dL (33.0-37.0) 11/12/17 05:50 RDW 12.8 % (11.5-14.5) 11/12/17 05:50 Plt Count 314 K/uL (130-400) 11/12/17 05:50 MPV 9.4 fl (7.2-11.7) 11/12/17 05:50 Neut % (Auto) 57.7 % (50.0-75.0) 11/12/17 05:50 Lymph % (Auto) 26.6 % (20.0-40.0) 11/12/17 05:50 Ballard % (Auto) 8.9 % (0.0-10.0) 11/12/17 05:50 Eos % (Auto) 5.9 % (0.0-4.0) H 11/12/17 05:50 Baso % (Auto) 0.9 % (0.0-2.0) 11/12/17 05:50 Neut # (Auto) 4.2 K/uL (1.8-7.0) 11/12/17 05:50 Lymph # (Auto) 1.9 K/uL (1.0-4.3) 11/12/17 05:50 Ballard # (Auto) 0.6 K/uL (0.0-0.8) 11/12/17 05:50 Eos # (Auto) 0.4 K/uL (0.0-0.7) 11/12/17 05:50 Baso # (Auto) 0.1 K/uL (0.0-0.2) 11/12/17 05:50 pO2 67 mm/Hg (30-55) H 11/08/17 15:27 VBG pH 7.51 (7.32-7.43) H 11/08/17 15:27 VBG pCO2 30 mmHg (40-60) L 11/08/17 15:27 VBG HCO3 26.2 mmol/L 11/08/17 15:27 VBG Total CO2 24.8 mmol/L (22-28) 11/08/17 15:27 VBG O2 Sat (Calc) 97.8 % (40-65) H 11/08/17 15:27 VBG Base Excess 1.7 mmol/L (0.0-2.0) 11/08/17 15:27 VBG Potassium 4.4 mmol/L (3.6-5.2) 11/08/17 15:27 Sodium 134.0 mmol/L (132-148) 11/08/17 15:27 Chloride 105.0 mmol/L (98-107) 11/08/17 15:27 Glucose 99 mg/dL (75-110) 11/08/17 15:27 Lactate 1.7 mmol/L (0.7-2.1) 11/08/17 15:27 FiO2 21.0 % 11/08/17 15:27 Sodium 138 mmol/l (132-148) 11/09/17 05:40 Potassium 4.3 MMOL/L (3.6-5.0) 11/09/17 05:40 Chloride 104 mmol/L (98-107) 11/09/17 05:40 Carbon Dioxide 27 mmol/L (22-30) 11/09/17 05:40 Anion Gap 11 (10-20) 11/09/17 05:40 BUN 16 mg/dl (9-20) 11/09/17 05:40 Creatinine 1.1 mg/dl (0.8-1.5) 11/09/17 05:40 Est GFR ( Amer) > 60 11/09/17 05:40 Est GFR (Non-Af Amer) > 60 11/09/17 05:40 Random Glucose 93 mg/dL (75-110) 11/09/17 05:40 Calcium 8.6 mg/dL (8.4-10.2) 11/09/17 05:40 Triglycerides 147 mg/DL (0-149) 11/09/17 05:40 Cholesterol 135 mg/dL (0-199) 11/09/17 05:40 LDL Cholesterol Direct 59 mg/dL (0-129) 11/09/17 05:40 HDL Cholesterol 35 MG/DL (30-70) 11/09/17 05:40 Thyroxine (T4) 7.30 ug/dl (5.5-11.0) 11/09/17 05:40 Total T3 0.805 nmol/L (1.49-2.60) L 11/09/17 05:40 Venous Blood Potassium 4.4 mmol/L (3.6-5.2) 11/08/17 15:27 Urine Color Yellow (YELLOW) 11/08/17 15:25 Urine Clarity Slighty-cloudy (Clear) 11/08/17 15:25 Urine pH 6.0 (5.0-8.0) 11/08/17 15:25 Ur Specific Taylor 1.018 (1.003-1.030) 11/08/17 15:25 Urine Protein Negative mg/dL (NEGATIVE) 11/08/17 15:25 Urine Glucose (UA) Neg mg/dL (Normal) 11/08/17 15:25 Urine Ketones Negative mg/dL (NEGATIVE) 11/08/17 15:25 Urine Blood Small (NEGATIVE) 11/08/17 15:25 Urine Nitrate Negative (NEGATIVE) 11/08/17 15:25 Urine Bilirubin Negative (NEGATIVE) 11/08/17 15:25 Urine Urobilinogen 0.2-1.0 mg/dL (0.2-1.0) 11/08/17 15:25 Ur Leukocyte Esterase Neg Lauren/uL (Negative) 11/08/17 15:25 Urine RBC (Auto) 4 /hpf (0-3) H 11/08/17 15:25 Urine Microscopic WBC 1 /hpf (0-5) 11/08/17 15:25 Ur Squamous Epith Cells 5 /hpf (0-5) 11/08/17 15:25 Urine Bacteria Rare (<OCC) 11/08/17 15:25 Hyaline Casts 0-2 /hpf (0-2) 11/08/17 15:25 Vancomycin Trough 13.5 ug/mL (5.0-10.0) H 11/10/17 06:30 Valproic Acid < 10.0 ug/mL (50.0-100.0) L 11/09/17 11:07 Discharge Exam - Head Exam Head Exam: NORMAL INSPECTION Discharge Plan - Discharge Medications Prescriptions: Cephalexin [Keflex] 500 mg PO TID #21 capsule - Follow Up Plan Condition: FAIR Disposition: HOME/ ROUTINE Instructions: Cellulitis and Erysipelas (Skin Infections), Skin Abscess Additional Instructions: REGRESA EN 2 AMAYA PARA REVISAR Referrals: Timothy Abreu MD [Staff Provider] - Gavino Hidalgo MD [Staff Provider] -
== END 2017-11-12 17:33 | disposition home or self-care (01) | DRG 603 ==
LOC: H.ER 11:49 → H.ERHOLD 16:13 → H.MEDSURG1 17:31
PROVIDERS: ADMIT Internal Medicine Pulmonary Disease; ATTEND Internal Medicine Pulmonary Disease
PROC: 0H9LXZZ Drainage of Left Lower Leg Skin, External Approach (ICD-10-PCS; principal; 2017-11-08)
DX: L02.416 Cutaneous abscess of left lower limb (principal); L03.116 Cellulitis of left lower limb; F31.9 Bipolar disorder, unspecified; F41.9 Anxiety disorder, unspecified; I10 Essential (primary) hypertension; Z87.891 Personal history of nicotine dependence; F10.20 Alcohol dependence, uncomplicated; G40.909 Epilepsy, unspecified, not intractable, without status epilepticus; B95.61 Methicillin susceptible Staphylococcus aureus infection as the cause of diseases classified elsewhere

== ENCOUNTER 2018-06-19 14:31 | Observation (INO) | payer OTHER ==
[2018-06-19 14:31] VITALS: BMI 32.8
--- NOTE | 2018-06-19 16:15 | ED PDOC ---
HPI: Altered Mental Status Time Seen by Provider: 06/19/18 15:44 Chief Complaint (Nursing): Weakness/Neurological Deficit Chief Complaint (Provider): altered mental status History Per: Patient Additional Complaint(s): 62 y/o Male poor historian with hx of seizure disorder and bipolar disorder and anxiety who was brought in by ambulance for altered mental status. Pt states that he had a tooth extraction using local anesthetic today at the dentist's office. After the procedure, he suddenly had B/L leg weakness and could not walk and then had difficult speaking. He states that he understood what was being said but he could not express himself. Denies LOC, dizziness, ALBRIGHT, palpitations. By the time he arrived in ED, he felt extremely anxious but was able to speak at that point. Denies anticoagulant use. Hx difficult to obtain as patient is poor historian. NIHSS Stroke Scale - Date/Time Evaluation Performed Date Performed: 06/19/18 Time Performed: 16:00 - How Severe is the Stroke Level of Consciousness: 0=Alert LOC to Questions: 0=Both comments correct LOC to commands: 0=Obeys both correctly Best Gaze: 0=Normal Visual: 1=Partial hemianopia Facial: 0=Normal Motor Arm - Left: 0=No drift Motor Arm - Right: 0=No drift Motor Leg - Left: 0=No drift Motor Leg - Right: 0=No drift Limb Ataxia: 0=Absent Sensory: 0=Normal Best Language: 0=No aphasia Extinction & Inattention (Neglect): 0=Normal, no object Past Medical History Reviewed: Historical Data, Nursing Documentation, Vital Signs Vital Signs: Last Vital Signs Temp 97.9 F 06/19/18 14:56 Pulse 82 06/19/18 14:56 Resp 22 06/19/18 14:56 BP 166/116 H 06/19/18 14:56 Pulse Ox 100 06/19/18 14:56 - Medical History PMH: Anxiety, Depression, HTN, Schizophrenia, Seizures Denies: Chronic Kidney Disease - Surgical History Surgical History: Appendectomy, Cholecystectomy - Family History Family History: States: Unknown Family Hx - Immunization History Hx Tetanus Toxoid Vaccination: No Hx Influenza Vaccination: No Hx Pneumococcal Vaccination: No - Home Medications Home Medications: Ambulatory Orders Medication Instructions Recorded Zolpidem [Ambien] 10 mg PO HS 12/24/14 Escitalopram [Lexapro] 10 mg PO DAILY #30 tab 03/05/17 Divalproex [Depakote DR TAB] 125 mg PO DAILY 06/19/18 Levetiracetam 1,000 mg PO Q12 06/19/18 OLANZapine [Zyprexa] 7.5 mg PO HS 06/19/18 Omeprazole 40 mg PO DAILY 06/19/18 - Allergies Allergies/Adverse Reactions: Allergies Allergy/AdvReac Type Severity Reaction Status Date / Time paroxetine HCl [From Paxil] Allergy dyskinesia Verified 03/30/18 12:23 like phenytoin sodium Allergy SWELLING Verified 03/30/18 12:23 [From Dilantin] phenytoin sodium extended Allergy SWELLING Verified 03/30/18 12:23 [From Dilantin] haloperidol [From Haldol] AdvReac SWELLING Verified 03/30/18 12:23 Review of Systems Constitutional: Negative for: Fever Cardiovascular: Negative for: Chest Pain Respiratory: Negative for: Shortness of Breath Neurological: Positive for: Weakness, Change in Speech. Negative for: Headache Physical Exam - Reviewed Nursing Documentation Reviewed: Yes - Physical Exam Appears: Positive for: No Acute Distress Skin: Positive for: Normal Color Eye Exam: Positive for: EOMI, PERRL Neck: Positive for: Normal, Painless ROM Cardiovascular/Chest: Positive for: Regular Rate, Rhythm Respiratory: Positive for: Normal Breath Sounds Gastrointestinal/Abdominal: Positive for: Normal Exam Neurological/Psych: Positive for: Awake, Alert, Symmetric/Intact Strength (in upper and lower extremities B/L, no pronator drift), Oriented, Mood/Affect (+ Flight of ideas requiring frequent redirection. 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 Negative for: Lethargic, Motor/Sensory Deficits, Facial Droop - Laboratory Results Result Diagrams: 06/19/18 16:33 06/19/18 16:33 - ECG O2 Sat by Pulse Oximetry: 100 Medical Decision Making Medical Decision Making: Code stroke called 16:15: CBC, CMP, Trop Accucheck Normal Saline 1l IV Stat head CT w/o contrast Stroke team consult Lipid panel HgBA1c Urine drug screen Urine dip EKG: sinus, HR 89, no ischemic change or arrhythmia NIH Stroke Scale/Score (NIHSS) from Five minutes.Commutable on 06/19/2018 All calculations should be rechecked by clinician prior to use RESULT SUMMARY: 1 points NIH Stroke Scale INPUTS: 1A: Level of consciousness > 0 = Alert; keenly responsive 1B: Ask month and age > 0 = Both questions right 1C: 'Blink eyes' & 'squeeze hands' > 0 = Performs both tasks 2: Horizontal extraocular movements > 0 = Normal 3: Visual lopez > 1 = Partial hemianopia 4: Facial palsy > 0 = Normal symmetry 5A: Left arm motor drift > 0 = No drift for 10 seconds 5B: Right arm motor drift > 0 = No drift for 10 seconds 6A: Left leg motor drift > 0 = No drift for 5 seconds 6B: Right leg motor drift > 0 = No drift for 5 seconds 7: Limb Ataxia > 0 = No ataxia 8: Sensation > 0 = Normal; no sensory loss 9: Language/aphasia > 0 = Normal; no aphasia 10: Dysarthria > 0 = Normal 11: Extinction/inattention > 0 = No abnormality Head CT w/o contrast: FINDINGS: HEMORRHAGE: No intracranial hemorrhage. BRAIN: No mass effect or edema. There is generalized cerebral atrophy that appears similar. No gross chronic microvascular ischemic changes. VENTRICLES: Unremarkable. No hydrocephalus. CALVARIUM: Unremarkable. PARANASAL SINUSES: Unremarkable as visualized. No significant inflammatory changes. MASTOID AIR CELLS: Unremarkable as visualized. No inflammatory changes. OTHER FINDINGS: I noted are calcifications in the left pinna/ear unchanged. IMPRESSION: Cerebral atrophy similar in appearance. No interval hemorrhage or mass effect seen. 16:47: stroke neurologist, Dr. Tobias contacted. Brain MRI, ASA 325mg PO x 1 and tele (ordered) 16:52: case discussed with Dr. Abreu who accepts admission to obs/tele for TIA. Care transitioned at this time with bridging orders. Admission discussed with patient who was in agreement with plan and asked that his son, Jose F, be called and alerted that he is in hospital. No answer at number provided by patient but message left to call back ER for further information re: patient. Disposition - Clinical Impression Clinical Impression: TIA (transient ischemic attack) - Patient ED Disposition Is Patient to be Admitted: Yes Discussed With DrChucho: Timothy Abreu Doctor Will See Patient In The: Hospital Counseled Patient/Family Regarding: Studies Performed, Diagnosis - Disposition Disposition: Transfer of Care Disposition Time: 16:50 Condition: FAIR
--- NOTE | 2018-06-19 16:31 | CT ---
Date of service: 06/19/2018 PROCEDURE: CT HEAD WITHOUT CONTRAST. HISTORY: expressive aphasia and limb weakness COMPARISON: 04/11/2017 TECHNIQUE: Axial computed tomography images were obtained through the head/brain without intravenous contrast. Radiation dose: Total exam DLP = 1618.93 mGy-cm. This CT exam was performed using one or more of the following dose reduction techniques: Automated exposure control, adjustment of the mA and/or kV according to patient size, and/or use of iterative reconstruction technique. FINDINGS: HEMORRHAGE: No intracranial hemorrhage. BRAIN: No mass effect or edema. There is generalized cerebral atrophy that appears similar. No gross chronic microvascular ischemic changes. VENTRICLES: Unremarkable. No hydrocephalus. CALVARIUM: Unremarkable. PARANASAL SINUSES: Unremarkable as visualized. No significant inflammatory changes. MASTOID AIR CELLS: Unremarkable as visualized. No inflammatory changes. OTHER FINDINGS: I noted are calcifications in the left pinna/ear unchanged. IMPRESSION: Cerebral atrophy similar in appearance. No interval hemorrhage or mass effect seen.
[2018-06-19] MEDS: Sodium Chloride 0.9% 1,000 ML IV SCH (16:43)
[2018-06-19 16:47] LABS: ALB/GLOB RATIO 1.3 (1.0-2.1); ALBUMIN 5.2 g/dL (3.5-5.0); ALT/SGPT 35 U/L (21-72); AST/SGOT 43 U/L (17-59); BLOOD UREA NITROGEN 11 mg/dl (9-20); CALCIUM 10.3 mg/dL (8.4-10.2); GFR NON-AFRICAN AMERICAN > 60; HDL CHOLESTEROL 77 MG/DL (30-70)
--- NOTE | 2018-06-19 16:51 | RAD ---
Date of service: 06/19/2018 HISTORY: Code Stroke COMPARISON: 11/09/2017. FINDINGS: LUNGS: No active pulmonary disease. PLEURA: No significant pleural effusion identified, no pneumothorax apparent. CARDIOVASCULAR: No atherosclerotic calcification present Normal. OSSEOUS STRUCTURES: No significant abnormalities. VISUALIZED UPPER ABDOMEN: Normal. OTHER FINDINGS: None. IMPRESSION: No active disease. No significant interval change compared to the prior examination(s).
[2018-06-19 16:58] LABS: LDL CHOLESTEROL 89 mg/dL (0-129)
[2018-06-19 17:07] LABS: PROTHROMBIN TIME 11.7 Seconds (9.8-13.1)
[2018-06-19 17:09] LABS: PARTIAL THROMBOPLASTIN TIME 29.8 Seconds (25.6-37.1)
[2018-06-19 17:14] LABS: BARBITURATES, UR NEGATIVE (NEGATIVE); BENZODIAZEPINES, UR NEGATIVE (NEGATIVE); OPIATES, UR NEGATIVE (NEGATIVE); PHENCYCLIDINE, UR NEGATIVE (NEGATIVE)
[2018-06-19 17:49] LABS: BASO # 0.1 K/uL (0.0-0.2); BASO % 0.7 % (0.0-2.0); EOS % 0.2 % (0.0-4.0); HEMOGLOBIN 16.6 g/dL (12.0-18.0); LYMPH # 2.1 K/uL (1.0-4.3); LYMPH % 26.3 % (20.0-40.0); MEAN CELL VOLUME 94.1 fl (80.0-94.0); MEAN CORPUSCULAR HEMOGLOBIN 31.5 pg (27.0-31.0); MEAN CORPUSCULAR HGB CONC 33.5 g/dL (33.0-37.0); MEAN PLATELET VOLUME 10.4 fl (7.2-11.7); MONO # 0.7 K/uL (0.0-0.8); MONO % 8.5 % (0.0-10.0); NEUT # 5.1 K/uL (1.8-7.0); NEUT % 64.3 % (50.0-75.0); NRBC % 0.1 % (0.0-0.0); RBC 5.27 Mil/uL (4.40-5.90); RED CELL DISTRIBUTION WIDTH 13.2 % (11.5-14.5); WHITE BLOOD COUNT 7.9 K/uL (4.8-10.8)
--- NOTE | 2018-06-19 18:09 | MRI ---
Date of service: 06/19/2018 PROCEDURE: MRI BRAIN WITHOUT CONTRAST HISTORY: possible TIA COMPARISON: CT head without contrast from 06/19/2018 TECHNIQUE: Multiplanar, multisequence MR images of the brain were obtained without intravenous contrast enhancement. FINDINGS: HEMORRHAGE: None DWI: No evidence of an acute or early subacute infarction. BRAIN PARENCHYMA: Moscoso-white matter differentiation is preserved. There is no mass, mass effect or abnormal extra-axial fluid collection. There is no territorial infarction. 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 There is a partially empty sella. VENTRICLES: There is mild age-related global parenchymal volume loss and proportionate enlargement of the ventricles and cortical sulci. CRANIUM: There is normal bone marrow signal pattern. ORBITS: Grossly unremarkable. PARANASAL SINUSES/MASTOIDS: Mild mucosal thickening in the paranasal sinuses. Small right mastoid effusion. VASCULAR SYSTEM: There are normal signal voids in the larger intracranial arteries. OTHER FINDINGS: None. IMPRESSION: 1. No acute intracranial abnormality. 2. Mild age related global parenchymal volume loss. 3. 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
[2018-06-19 19:00] LABS: URINE BACTERIA RARE (<OCC); URINE BILIRUBIN NEGATIVE (NEGATIVE); URINE BLOOD SMALL (NEGATIVE); URINE CLARITY CLEAR (Clear); URINE COLOR STRAW (YELLOW); URINE GLUCOSE (UA) NEG (NEGATIVE); URINE LEUKOCYTE ESTERASE NEG Leu/uL (Negative); URINE PROTEIN NEGATIVE (NEGATIVE); URINE UROBILINOGEN 0.2-1.0 mg/dL (0.2-1.0)
[2018-06-20] MEDS: Sodium Chloride 0.9% 1,000 ML IV SCH ×2 (05:45→12:54)
[2018-06-20 06:07] LABS: MEAN CELL VOLUME 95.3 fl (80.0-94.0); MEAN CORPUSCULAR HEMOGLOBIN 31.7 pg (27.0-31.0); MEAN CORPUSCULAR HGB CONC 33.2 g/dL (33.0-37.0); RBC 4.47 Mil/uL (4.40-5.90); RED CELL DISTRIBUTION WIDTH 13.5 % (11.5-14.5)
[2018-06-20 06:09] LABS: HEMOGLOBIN 14.2 g/dL (12.0-18.0)
[2018-06-20 06:19] LABS: ALB/GLOB RATIO 1.3 (1.0-2.1); ALBUMIN 3.9 g/dL (3.5-5.0); ALT/SGPT 32 U/L (21-72); AST/SGOT 30 U/L (17-59); BLOOD UREA NITROGEN 13 mg/dl (9-20); CALCIUM 8.9 mg/dL (8.4-10.2); GFR NON-AFRICAN AMERICAN > 60; HDL CHOLESTEROL 52 MG/DL (30-70)
[2018-06-20 06:27] LABS: LDL CHOLESTEROL 73 mg/dL (0-129)
[2018-06-20] MEDS ORDERED: Divalproex 125 mg DR (BID formulation) PO SCH (09:00)
[2018-06-20] MEDS ORDERED: Pantoprazole 40 mg EC Tab PO SCH (09:00)
[2018-06-20] MEDS ORDERED: Gadodiamide 287 MG/ML VIAL (15ML) IV ONE (11:13)
[2018-06-20 13:21] VITALS: RESP 16
--- NOTE | 2018-06-20 15:17 | MRI ---
Date of service: 06/20/2018 PROCEDURE: MRI BRAIN WITH AND WITHOUT CONTRAST HISTORY: TIA COMPARISON: Prior brain MRI without contrast 06/19/2018. TECHNIQUE: Multiplanar T1 weighted MR images of the brain were obtained with and without intravenous contrast enhancement (Omniscan 15 cc). FINDINGS: No abnormal intracranial enhancement is appreciated throughout the supra or infratentorial compartments including the brainstem. A small curvilinear lipoma is reiterated at the midline splenium of the corpus callosum once again. Empty sella again evident. Corticomedullary differentiation remains within normal limits throughout the brain and there remains no mass effect, hydrocephalus or suspicious extra-axial fluid collection. Limited expansion of the ventricular sulcal sternal spaces reiterated compatible with diffuse cerebral atrophy. OTHER FINDINGS: None . IMPRESSION: No abnormal intracranial enhancement. Posterior corpus callosum lipoma reiterated as well as limited age-appropriate age related neuro degenerative change.
--- NOTE | 2018-06-20 16:34 | CP.PCM.PCO ---
Assessment/Plan - Assessment and Plan (Free Text) Assessment: Patient of sound mind, ao x3 states his symptoms have resolved, he wishes to go home and take care of his dog who is left alone. Patient explained all the risks involved in signing out ama. Patient is still pending results of MRI, carotids and echocardiogram and Neurology consult Patient still insists in signing out AMA. Educated to follow up with his [employer] Dr Cortez outpatient and return if symptoms return.
[2018-06-20 16:43] VITALS: BP 103/69; PULSE 66; TEMP 97.9; O2SAT 99
--- NOTE | 2018-06-20 16:50 | CP.PCM.HP ---
History of Present Illness - History of Present Illness History of Present Illness: CC: Weakness 62 y/o M, PMHx: Bipolar Disorder, Seizure, Schizophrenia, ETOH abuse, SI, Depression, Anxiety. Pt was brought to [facility] via EMS from a dentis't office on 06/19/18 after he had a tooth extraction with local anesthesia and right after he start having difficulty in speaking associated to legs weaknesses with no improvement. Worsening symptoms: Difficulty walking, extremely anxious, BP 160/109 while in the ER. Aggravated factor: Walking/movements. Pt denied: Fever, chills, n/v/d, abdominal pain, urinary symptoms, CP, palpitations, dizziness, headache, SOB, cough, sick contact, recent travel out of [place]. Chest CT: Generalized cerebral atrophy, no hemorrhage or mass effect. CXR: No active disease. Brain MRI: No acute intracranial abnormality, mild age related global parenchymal volume loss. 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 Present on Admission - Present on Admission Any Indicators Present on Admission: No Review of Systems - Constitutional Constitutional: Weakness (lower extremities) - EENT Eyes: Other (negative) Ears: Other (negative) Nose/Mouth/Throat: Other (negative) - Cardiovascular Cardiovascular: Other (negative) - Respiratory Respiratory: Other (negative) - Gastrointestinal Gastrointestinal: Other (negative) - Genitourinary Genitourinary: Other (negative) - Musculoskeletal Musculoskeletal: Muscle Weakness (L/E) - Integumentary Integumentary: Other (negative) - Neurological Neurological: Abnormal Gait, Abnormal Speech, Weakness - Psychiatric Psychiatric: Anxiety, Depression - Endocrine Endocrine: Other (negative) - Hematologic/Lymphatic Hematologic: Other (negtaive) Past Patient History - Past Medical History & Family History Past Medical History?: Yes Pertinent Family History: Unknown - Past Social History Smoking Status: Never Smoked Alcohol: > 2 Drinks/Day Drugs: Denies Home Situation {Lives}: With Family - CARDIAC Hx Cardiac Disorders: Yes Hx Hypertension: Yes - PULMONARY Hx Respiratory Disorders: No Hx Tuberculosis: No - NEUROLOGICAL Hx Neurological Disorder: Yes Hx Seizures: Yes - HEENT Hx HEENT Problems: No - RENAL Hx Chronic Kidney Disease: No - ENDOCRINE/METABOLIC Hx Endocrine Disorders: No - HEMATOLOGICAL/ONCOLOGICAL Hx Blood Disorders: No Hx Cancer: No - INTEGUMENTARY Hx Dermatological Problems: No - MUSCULOSKELETAL/RHEUMATOLOGICAL Hx Musculoskeletal Disorders: No Hx Falls: No - GASTROINTESTINAL Hx Gastrointestinal Disorders: No - GENITOURINARY/GYNECOLOGICAL Hx Genitourinary Disorders: No - PSYCHIATRIC Hx Psychophysiologic Disorder: Yes Hx Anxiety: Yes Hx Bipolar Disorder: Yes Hx Depression: Yes Hx Schizophrenia: Yes Hx Substance Use: No - SURGICAL HISTORY Hx Surgeries: Yes Hx Appendectomy: Yes Hx Cholecystectomy: Yes - ANESTHESIA Hx Anesthesia: Yes Hx Anesthesia Reactions: No Hx Malignant Hyperthermia: No Meds Allergies/Adverse Reactions: Allergies Allergy/AdvReac Type Severity Reaction Status Date / Time paroxetine HCl [From Paxil] Allergy dyskinesia Verified 03/30/18 12:23 like phenytoin sodium Allergy SWELLING Verified 03/30/18 12:23 [From Dilantin] phenytoin sodium extended Allergy SWELLING Verified 03/30/18 12:23 [From Dilantin] haloperidol [From Haldol] AdvReac SWELLING Verified 03/30/18 12:23 Physical Exam - Constitutional Appears: No Acute Distress - Head Exam Head Exam: NORMAL INSPECTION - Eye Exam Eye Exam: PERRL - ENT Exam ENT Exam: Normal Exam - Neck Exam Neck exam: Positive for: Normal Inspection - Respiratory Exam Respiratory Exam: NORMAL BREATHING PATTERN - Cardiovascular Exam Cardiovascular Exam: REGULAR RHYTHM - GI/Abdominal Exam GI & Abdominal Exam: Normal Bowel Sounds, Soft - Extremities Exam Extremities exam: Positive for: normal inspection - Back Exam Back exam: NORMAL INSPECTION - Neurological Exam Neurological exam: Alert, Oriented x3 Additional comments: No facial droop, no tongue deviation, no focal motor/sensory deficit - Psychiatric Exam Psychiatric exam: Anxious, Depressed - Skin Skin Exam: Warm Results - Vital Signs Recent Vital Signs: Last Vital Signs Temp 97.9 F 06/20/18 16:43 Pulse 66 06/20/18 16:43 Resp 16 06/20/18 16:43 BP 103/69 06/20/18 16:43 Pulse Ox 99 06/20/18 16:43 reviewed J.PChucho - Labs Result Diagrams: 06/20/18 05:10 06/20/18 05:10 Labs: Laboratory Results - last 24 hr 06/19/18 06/19/18 06/19/18 16:33 16:33 16:33 WBC 7.9 RBC 5.27 Hgb 16.6 D Hct 49.6 MCV 94.1 H MCH 31.5 H MCHC 33.5 RDW 13.2 Plt Count 292 MPV 10.4 Neut % (Auto) 64.3 Lymph % (Auto) 26.3 [place] % (Auto) 8.5 Eos % (Auto) 0.2 Baso % (Auto) 0.7 Neut # (Auto) 5.1 Lymph # (Auto) 2.1 [place] # (Auto) 0.7 Eos # (Auto) 0.0 Baso # (Auto) 0.1 PT INR APTT Sodium Potassium Chloride Carbon Dioxide Anion Gap BUN Creatinine Est GFR ( Amer) Est GFR (Non-Af Amer) Random Glucose Hemoglobin A1c 5.6 Calcium Total Bilirubin AST ALT Alkaline Phosphatase Troponin I < 0.0120 Total Protein Albumin Globulin Albumin/Globulin Ratio Triglycerides Cholesterol LDL Cholesterol Direct 89 HDL Cholesterol Thyroxine (T4) TSH 3rd Generation Urine Color Urine Clarity Urine pH Ur Specific [place] Urine Protein Urine Glucose (UA) Urine Ketones Urine Blood Urine Nitrate Urine Bilirubin Urine Urobilinogen Ur Leukocyte Esterase Urine Microscopic WBC Urine Bacteria Urine Opiates Screen Urine Methadone Screen Ur Barbiturates Screen Ur Phencyclidine Scrn Ur Amphetamines Screen U Benzodiazepines Scrn U Oth Cocaine Metabols U Cannabinoids Screen 06/19/18 06/19/18 06/19/18 16:33 16:48 18:48 WBC RBC Hgb Hct MCV MCH MCHC RDW Plt Count MPV Neut % (Auto) Lymph % (Auto) [place] % (Auto) Eos % (Auto) Baso % (Auto) Neut # (Auto) Lymph # (Auto) [place] # (Auto) Eos # (Auto) Baso # (Auto) PT 11.7 INR 1.0 APTT 29.8 Sodium Potassium Chloride Carbon Dioxide Anion Gap BUN Creatinine Est GFR ( Amer) Est GFR (Non-Af Amer) Random Glucose Hemoglobin A1c Calcium Total Bilirubin AST ALT Alkaline Phosphatase Troponin I Total Protein Albumin Globulin Albumin/Globulin Ratio Triglycerides Cholesterol LDL Cholesterol Direct HDL Cholesterol Thyroxine (T4) TSH 3rd Generation Urine Color Straw Urine Clarity Clear Urine pH 8.0 Ur Specific [place] < 1.005 Urine Protein Negative Urine Glucose (UA) Neg Urine Ketones Negative Urine Blood Small Urine Nitrate Negative Urine Bilirubin Negative Urine Urobilinogen 0.2-1.0 Ur Leukocyte Esterase Neg Urine Microscopic WBC < 1 Urine Bacteria Rare Urine Opiates Screen Negative Urine Methadone Screen Negative Ur Barbiturates Screen Negative Ur Phencyclidine Scrn Negative Ur Amphetamines Screen Negative U Benzodiazepines Scrn Negative U Oth Cocaine Metabols Negative U Cannabinoids Screen Negative 06/20/18 06/20/18 05:10 05:10 WBC 6.0 RBC 4.47 Hgb 14.2 D Hct 42.6 MCV 95.3 H MCH 31.7 H MCHC 33.2 RDW 13.5 Plt Count 237 MPV Neut % (Auto) Lymph % (Auto) [place] % (Auto) Eos % (Auto) Baso % (Auto) Neut # (Auto) Lymph # (Auto) [place] # (Auto) Eos # (Auto) Baso # (Auto) PT INR APTT Sodium 136 Potassium 3.4 L Chloride 106 Carbon Dioxide 23 Anion Gap 10 BUN 13 Creatinine 1.0 Est GFR ( Amer) > 60 Est GFR (Non-Af Amer) > 60 Random Glucose 93 Hemoglobin A1c Calcium 8.9 Total Bilirubin 0.8 AST 30 ALT 32 Alkaline Phosphatase 60 Troponin I Total Protein 6.9 Albumin 3.9 Globulin 3.0 Albumin/Globulin Ratio 1.3 Triglycerides 119 Cholesterol 154 LDL Cholesterol Direct 73 HDL Cholesterol 52 Thyroxine (T4) 8.57 TSH 3rd Generation 1.31 Urine Color Urine Clarity Urine pH Ur Specific [place] Urine Protein Urine Glucose (UA) Urine Ketones Urine Blood Urine Nitrate Urine Bilirubin Urine Urobilinogen Ur Leukocyte Esterase Urine Microscopic WBC Urine Bacteria Urine Opiates Screen Urine Methadone Screen Ur Barbiturates Screen Ur Phencyclidine Scrn Ur Amphetamines Screen U Benzodiazepines Scrn U Oth Cocaine Metabols U Cannabinoids Screen reviewed J.P. - Imaging and Cardiology Chest x-ray Status: Report reviewed by me (J.P.) CT scan - head Status: Report reviewed by me (J,P.) MRI - head Status: Report reviewed by me (J.P.) Assessment & Plan (1) TIA (transient ischemic attack) Status: Acute (2) Bipolar disorder Status: Chronic (3) Schizophrenia Status: Chronic (4) Depression Status: Chronic (5) Seizure Status: Chronic - Assessment and Plan (Free Text) Plan: F/U Echo, Carotid U-S, continue Depakote, Keppra, Zyprexa, Lipitor, ASA and rest of Tx. PT eval, Neurology consult. - Date & Time Date: 06/20/18 Time: 11:40
--- NOTE | 2018-06-20 17:24 | CP.PCM.CON ---
History of Present Illness - History of Present Illness History of Present Illness: Neurology consult dictated. Mr. Rodríguez had symptoms that have now resolved and MRI brain shows no stroke or TIA DR. mario Neurology Past Patient History - Past Medical History & Family History Past Medical History?: Yes - Past Social History Smoking Status: Never Smoked - CARDIAC Hx Hypertension: Yes - PULMONARY Hx Tuberculosis: No - NEUROLOGICAL Hx Seizures: Yes - HEENT Hx HEENT Problems: No - RENAL Hx Chronic Kidney Disease: No - ENDOCRINE/METABOLIC Hx Endocrine Disorders: No - HEMATOLOGICAL/ONCOLOGICAL Hx Blood Disorders: No Hx Cancer: No - INTEGUMENTARY Hx Dermatological Problems: No - MUSCULOSKELETAL/RHEUMATOLOGICAL Hx Musculoskeletal Disorders: No Hx Falls: No - GASTROINTESTINAL Hx Gastrointestinal Disorders: No - GENITOURINARY/GYNECOLOGICAL Hx Genitourinary Disorders: No - PSYCHIATRIC Hx Anxiety: Yes Hx Depression: Yes Hx Schizophrenia: Yes Hx Substance Use: No - SURGICAL HISTORY Hx Appendectomy: Yes Hx Cholecystectomy: Yes - ANESTHESIA Hx Anesthesia: Yes Hx Anesthesia Reactions: No Hx Malignant Hyperthermia: No Meds Allergies/Adverse Reactions: Allergies Allergy/AdvReac Type Severity Reaction Status Date / Time paroxetine HCl [From Paxil] Allergy dyskinesia Verified 03/30/18 12:23 like phenytoin sodium Allergy SWELLING Verified 03/30/18 12:23 [From Dilantin] phenytoin sodium extended Allergy SWELLING Verified 03/30/18 12:23 [From Dilantin] haloperidol [From Haldol] AdvReac SWELLING Verified 03/30/18 12:23 Results - Vital Signs Recent Vital Signs: Last Vital Signs Temp 97.9 F 06/20/18 16:43 Pulse 66 06/20/18 16:43 Resp 16 06/20/18 16:43 BP 103/69 06/20/18 16:43 Pulse Ox 99 06/20/18 16:43 - Labs Result Diagrams: 06/20/18 05:10 06/20/18 05:10 Labs: Laboratory Results - last 24 hr 06/19/18 06/19/18 06/19/18 16:33 16:33 18:48 WBC 7.9 RBC 5.27 Hgb 16.6 D Hct 49.6 MCV 94.1 H MCH 31.5 H MCHC 33.5 RDW 13.2 Plt Count 292 MPV 10.4 Neut % (Auto) 64.3 Lymph % (Auto) 26.3 [place] % (Auto) 8.5 Eos % (Auto) 0.2 Baso % (Auto) 0.7 Neut # (Auto) 5.1 Lymph # (Auto) 2.1 [place] # (Auto) 0.7 Eos # (Auto) 0.0 Baso # (Auto) 0.1 Sodium Potassium Chloride Carbon Dioxide Anion Gap BUN Creatinine Est GFR ( Amer) Est GFR (Non-Af Amer) Random Glucose Hemoglobin A1c 5.6 Calcium Total Bilirubin AST ALT Alkaline Phosphatase Total Protein Albumin Globulin Albumin/Globulin Ratio Triglycerides Cholesterol LDL Cholesterol Direct HDL Cholesterol Thyroxine (T4) TSH 3rd Generation Urine Color Straw Urine Clarity Clear Urine pH 8.0 Ur Specific [place] < 1.005 Urine Protein Negative Urine Glucose (UA) Neg Urine Ketones Negative Urine Blood Small Urine Nitrate Negative Urine Bilirubin Negative Urine Urobilinogen 0.2-1.0 Ur Leukocyte Esterase Neg Urine Microscopic WBC < 1 Urine Bacteria Rare 06/20/18 06/20/18 05:10 05:10 WBC 6.0 RBC 4.47 Hgb 14.2 D Hct 42.6 MCV 95.3 H MCH 31.7 H MCHC 33.2 RDW 13.5 Plt Count 237 MPV Neut % (Auto) Lymph % (Auto) [place] % (Auto) Eos % (Auto) Baso % (Auto) Neut # (Auto) Lymph # (Auto) [place] # (Auto) Eos # (Auto) Baso # (Auto) Sodium 136 Potassium 3.4 L Chloride 106 Carbon Dioxide 23 Anion Gap 10 BUN 13 Creatinine 1.0 Est GFR ( Amer) > 60 Est GFR (Non-Af Amer) > 60 Random Glucose 93 Hemoglobin A1c Calcium 8.9 Total Bilirubin 0.8 AST 30 ALT 32 Alkaline Phosphatase 60 Total Protein 6.9 Albumin 3.9 Globulin 3.0 Albumin/Globulin Ratio 1.3 Triglycerides 119 Cholesterol 154 LDL Cholesterol Direct 73 HDL Cholesterol 52 Thyroxine (T4) 8.57 TSH 3rd Generation 1.31 Urine Color Urine Clarity Urine pH Ur Specific [place] Urine Protein Urine Glucose (UA) Urine Ketones Urine Blood Urine Nitrate Urine Bilirubin Urine Urobilinogen Ur Leukocyte Esterase Urine Microscopic WBC Urine Bacteria
--- NOTE | 2018-06-20 19:31 | CARD ---
APPROVED REPORT Date of service: 06/20/2018 EXAM: Two-dimensional and M-mode echocardiogram with Doppler and color Doppler. Other Information Quality : GoodRhythm : NSR INDICATION CVA/TIA 2D DIMENSIONS IVSd1.01 (0.7-1.1cm)LVDd4.71 (3.9-5.9cm) LVOT Diameter2.28 (1.8-2.4cm)PWd0.77 (0.7-1.1cm) IVSs1.55 (0.8-1.2cm)LVDs3.09 (2.5-4.0cm) FS (%) 34.5 %PWs1.43 (0.8-1.2cm) M-Mode DIMENSIONS Left Atrium (MM)2.73 (2.5-4.0cm)IVSd0.97 (0.7-1.1cm) Aortic Root3.81 (2.2-3.7cm)LVDd5.10 (4.0-5.6cm) Aortic Cusp Exc.2.48 (1.5-2.0cm)PWd1.05 (0.7-1.1cm) IVSs1.38 cmFS (%) 35 % LVDs3.31 (2.0-3.8cm)PWs1.38 cm Aortic Valve AoV Peak Gtvglqwz39.0cm/sAoV VTI16.9cmAO Peak GR.4mmHg LVOT Peak Cbwobzle59.3cm/sLVOT VTI14.92cmAO Mean GR.2mmHg PAOLA (VMAX)1.73bg4RKX (VTI)1.93cm2 Mitral Valve MV E Evoqpebi34.9cm/sMV DECEL RYEA238qkMC A Hqkpzyor37.5cm/s MV WND62urM/A ratio0.8MVA (PHT)3.24cm2 TDI Lateral E' Peak V10.51cm/sMedial E' Peak V9.78cm/sE/Lateral E'6.3 E/Medial E'6.7 LEFT VENTRICLE The left ventricle is normal size. There is normal left ventricular wall thickness. The left ventricular systolic function is normal. The estimated ejection fraction is 55-60% No regional wall motion abnormalities noted.. Transmitral Doppler flow pattern is Grade I-abnormal relaxation pattern. No left ventricle thrombus noted on this study. There is no ventricular septal defect visualized. There is no left ventricular aneurysm. There is no mass noted in the left ventricle. RIGHT VENTRICLE The right ventricle is normal size. There is normal right ventricular wall thickness. The right ventricular systolic function is normal. ATRIA The left atrium is mildly dilated. The right atrium size is normal. The interatrial septum is intact with no evidence for an atrial septal defect. AORTIC VALVE The aortic valve is normal in structure. No aortic regurgitation is present. There is no aortic valvular stenosis. There is no aortic valvular vegetation. MITRAL VALVE The mitral valve is normal in structure. There is no evidence of mitral valve prolapse. There is no mitral valve stenosis. There is mild mitral valve regurgitation noted. TRICUSPID VALVE The tricuspid valve is normal in structure. There is trace tricuspid valve regurgitation noted. RVSP is calculated at less than 20 mm Hg. There is no tricuspid valve prolapse or vegetation. There is no tricuspid valve stenosis. PULMONIC VALVE The pulmonary valve is normal in structure. There is no pulmonic valvular regurgitation. There is no pulmonic valvular stenosis. GREAT VESSELS The aortic root is normal in size. The ascending aorta is normal in size. The pulmonary artery is normal. The IVC is normal in size and collapses >50% with inspiration. PERICARDIAL EFFUSION There is no pericardial effusion. There is no pleural effusion. <Conclusion> The estimated ejection fraction is 55-60% Transmitral Doppler flow pattern is Grade I-abnormal relaxation pattern. The left atrium is mildly dilated. There is mild mitral valve regurgitation noted. There is trace tricuspid valve regurgitation noted. RVSP is calculated at less than 20 mm Hg.
--- NOTE | 2018-06-21 08:06 | CON ---
DATE: 06/20/2018 Neurology consult called by Dr. Marvin Guerrero. HISTORY OF PRESENT ILLNESS: Mr. Akash Rodríguez is a 62-year-old male who lives with his son and has a past medical history of epilepsy and bipolar disease, anxiety, altered mental status last night. The patient had tooth extraction, and after the procedure, he had bilateral leg weakness with difficulty walking, difficulty speaking. These symptoms resolved by the time he was in emergency room, and he was not a tPA candidate. He could not express himself initially but all symptoms resolved. Dr. Walker stated that he was in good health and denies any anticoagulants; known to have no trauma, no concussion, no car accident, no recent change in medications. He is chronically on Keppra and Depakote; and it is not clear who his neurologist is at this time. REVIEW OF SYSTEMS: Significant for malaise, headache, and weakness. PAST MEDICAL HISTORY: Anxiety, depression, hypertension, schizophrenia, epilepsy. PAST SURGICAL HISTORY: Appendectomy, cholecystectomy. FAMILY HISTORY AND SOCIAL HISTORY: No tobacco. No alcohol. Lives with his son. HOME MEDICATIONS: Ambien, Lexapro, Depakote 125 mg p.o. daily, Keppra 1000 mg p.o. every 12 hours, Zyprexa, and omeprazole. ALLERGIES: PAXIL, DILANTIN, AND HALDOL. LABORATORY DATA: As follows: CBC was normal. Chemistry significant only for abnormalities and total protein 9.2, cholesterol 206, HDL 77, extremely high. MRI of the brain was done which is normal. Carotid ultrasound done was normal. PHYSICAL EXAMINATION: VITAL SIGNS: In the ER with temperature 97.9, pulse 82, respiratory rate 22, blood pressure 166/116, showing diastolic hypertension. NEUROLOGIC: The patient is alert, oriented x3. Cranial nerves II through XII normal. Pupils equal, round, and reactive to light. EOMI. Speech is normal. There is no apraxia. Mini-mental status is 30/30. Motor 5/5. Tone is normal. Sensory is intact to fine touch, pin, position and vibration sense. Gait is normal. Reflexes are +2 in upper and lower limbs bilaterally. Toes are downgoing. No clonus. IMPRESSION: This is a 62-year-old male who has past medical history of epilepsy. He also was found to have the lipoma in the corpus callosum but no stroke, it is possible that he may had a seizure. PLAN: 1. EEG. 2. Continue Depakote 500 mg twice a day with goal of reducing Keppra. Keppra is contraindicated in schizophrenia. We will give this over several days. Thank you for this interesting consult. Kristian Tobias MD
--- NOTE | 2018-06-21 08:53 | CP.PCM.DIS ---
Provider - Provider Date of Admission: 06/19/18 16:40 Attending physician: Timothy Abreu MD Consults: 06/19/18 16:18 Stroke Team Consult Stat Comment: Consulting Provider: Neurohospitalist Consulting Physician: NEUROHOSP Neurohospitalist for Consult: Mitchell Huang Neurohospitalist for Consult: Kristian Tobias Reason for Consult: expressive aphasia, AMS, now resolved 06/20/18 13:02 Neurology Consult Routine Comment: Consulting Provider: Kristian Tobias Consulting Physician: Kristian Tobias Reason for Consult: tia Diagnosis - Discharge Diagnosis (1) TIA (transient ischemic attack) Status: Acute (2) Bipolar disorder Status: Chronic (3) Schizophrenia Status: Chronic (4) Depression Status: Chronic (5) Seizure Status: Chronic Hospital Course - Lab Results Lab Results: Most Recent Lab Values WBC 6.0 K/uL (4.8-10.8) 06/20/18 05:10 RBC 4.47 Mil/uL (4.40-5.90) 06/20/18 05:10 Hgb 14.2 g/dL (12.0-18.0) D 06/20/18 05:10 Hct 42.6 % (35.0-51.0) 06/20/18 05:10 MCV 95.3 fl (80.0-94.0) H 06/20/18 05:10 MCH 31.7 pg (27.0-31.0) H 06/20/18 05:10 MCHC 33.2 g/dL (33.0-37.0) 06/20/18 05:10 RDW 13.5 % (11.5-14.5) 06/20/18 05:10 Plt Count 237 K/uL (130-400) 06/20/18 05:10 MPV 10.4 fl (7.2-11.7) 06/19/18 16:33 Neut % (Auto) 64.3 % (50.0-75.0) 06/19/18 16:33 Lymph % (Auto) 26.3 % (20.0-40.0) 06/19/18 16:33 [place] % (Auto) 8.5 % (0.0-10.0) 06/19/18 16:33 Eos % (Auto) 0.2 % (0.0-4.0) 06/19/18 16:33 Baso % (Auto) 0.7 % (0.0-2.0) 06/19/18 16:33 Neut # (Auto) 5.1 K/uL (1.8-7.0) 06/19/18 16:33 Lymph # (Auto) 2.1 K/uL (1.0-4.3) 06/19/18 16:33 [place] # (Auto) 0.7 K/uL (0.0-0.8) 06/19/18 16:33 Eos # (Auto) 0.0 K/uL (0.0-0.7) 06/19/18 16:33 Baso # (Auto) 0.1 K/uL (0.0-0.2) 06/19/18 16:33 PT 11.7 Seconds (9.8-13.1) 06/19/18 16:33 INR 1.0 06/19/18 16:33 APTT 29.8 Seconds (25.6-37.1) 06/19/18 16:33 Sodium 136 mmol/l (132-148) 06/20/18 05:10 Potassium 3.4 MMOL/L (3.6-5.0) L 06/20/18 05:10 Chloride 106 mmol/L (98-107) 06/20/18 05:10 Carbon Dioxide 23 mmol/L (22-30) 06/20/18 05:10 Anion Gap 10 (10-20) 06/20/18 05:10 BUN 13 mg/dl (9-20) 06/20/18 05:10 Creatinine 1.0 mg/dl (0.8-1.5) 06/20/18 05:10 Est GFR ( Amer) > 60 06/20/18 05:10 Est GFR (Non-Af Amer) > 60 06/20/18 05:10 POC Glucose (mg/dL) 86 mg/dL (65-110) 06/19/18 16:41 Random Glucose 93 mg/dL (75-110) 06/20/18 05:10 Hemoglobin A1c 5.6 % (4.2-6.5) 06/19/18 16:33 Calcium 8.9 mg/dL (8.4-10.2) 06/20/18 05:10 Total Bilirubin 0.8 mg/dl (0.2-1.3) 06/20/18 05:10 AST 30 U/L (17-59) 06/20/18 05:10 ALT 32 U/L (21-72) 06/20/18 05:10 Alkaline Phosphatase 60 U/L (38-126) 06/20/18 05:10 Troponin I < 0.0120 ng/mL (0.00-0.120) 06/19/18 16:33 Total Protein 6.9 G/DL (6.3-8.2) 06/20/18 05:10 Albumin 3.9 g/dL (3.5-5.0) 06/20/18 05:10 Globulin 3.0 gm/dL (2.2-3.9) 06/20/18 05:10 Albumin/Globulin Ratio 1.3 (1.0-2.1) 06/20/18 05:10 Triglycerides 119 mg/DL (0-149) 06/20/18 05:10 Cholesterol 154 mg/dL (0-199) 06/20/18 05:10 LDL Cholesterol Direct 73 mg/dL (0-129) 06/20/18 05:10 HDL Cholesterol 52 MG/DL (30-70) 06/20/18 05:10 Thyroxine (T4) 8.57 ug/dl (5.5-11.0) 06/20/18 05:10 TSH 3rd Generation 1.31 mIU/ML (0.46-4.68) 06/20/18 05:10 Urine Color Straw (YELLOW) 06/19/18 18:48 Urine Clarity Clear (Clear) 06/19/18 18:48 Urine pH 8.0 (5.0-8.0) 06/19/18 18:48 Ur Specific [place] < 1.005 (1.003-1.030) 06/19/18 18:48 Urine Protein Negative mg/dL (NEGATIVE) 06/19/18 18:48 Urine Glucose (UA) Neg mg/dL (NEGATIVE) 06/19/18 18:48 Urine Ketones Negative mg/dL (NEGATIVE) 06/19/18 18:48 Urine Blood Small (NEGATIVE) 06/19/18 18:48 Urine Nitrate Negative (NEGATIVE) 06/19/18 18:48 Urine Bilirubin Negative (NEGATIVE) 06/19/18 18:48 Urine Urobilinogen 0.2-1.0 mg/dL (0.2-1.0) 06/19/18 18:48 Ur Leukocyte Esterase Neg Lauren/uL (Negative) 06/19/18 18:48 Urine Microscopic WBC < 1 /hpf (0-5) 06/19/18 18:48 Urine Bacteria Rare (<OCC) 06/19/18 18:48 Urine Opiates Screen Negative (NEGATIVE) 06/19/18 16:48 Urine Methadone Screen Negative (NEGATIVE) 06/19/18 16:48 Ur Barbiturates Screen Negative (NEGATIVE) 06/19/18 16:48 Ur Phencyclidine Scrn Negative (NEGATIVE) 06/19/18 16:48 Ur Amphetamines Screen Negative (NEGATIVE) 06/19/18 16:48 U Benzodiazepines Scrn Negative (NEGATIVE) 06/19/18 16:48 U Oth Cocaine Metabols Negative (NEGATIVE) 06/19/18 16:48 U Cannabinoids Screen Negative (NEGATIVE) 06/19/18 16:48 Discharge Exam - Head Exam Head Exam: NORMAL INSPECTION Discharge Plan - Follow Up Plan Condition: FAIR Disposition: AGAINST MEDICAL ADVICE
--- NOTE | 2018-06-21 13:26 | US ---
Date of service: 06/19/2018 PROCEDURE: Duplex ultrasound of the carotid and vertebral arteries. HISTORY: TIA COMPARISON: None available. TECHNIQUE: Grayscale and duplex Doppler evaluation of the cervical carotid and vertebral arteries were performed. The common carotid, carotid bifurcations and cervical ICA and proximal ECA were evaluated. The vertebral arteries were evaluated for gross patency and direction. FINDINGS: RIGHT CAROTID ARTERIES: Common Carotid Artery: Mild intimal thickening noted diffusely. Maximal flow velocity of 82.2 cm/s. Carotid Bifurcation: Normal. Internal Carotid Artery:Normal. Maximal flow velocity of 69.1 cm/s. External Carotid Artery (proximal branches): Normal. Maximal flow velocity of 68.0 cm/s. ICA/CCA Ratio: 0.8 LEFT CAROTID ARTERIES: Common Carotid Artery: Mild intimal thickening noted diffusely. Maximal flow velocity of 69.1 cm/s. Carotid Bifurcation: Normal. Internal Carotid Artery:Normal. Maximal flow velocity of 91.8 cm/s. External Carotid Artery (proximal branches): Normal. Maximal flow velocity of 57.0 cm/s. ICA/CCA Ratio: 1.3 VERTEBRAL ARTERIES: Right Vertebral Artery: Patent. Antegrade flow. Left Vertebral Artery: Patent. Antegrade flow. OTHER FINDINGS: No atherosclerotic calcification identified. IMPRESSION: Mild intimal thickening is seen throughout the bilateral common carotid arteries. No significant stenosis appreciated in the bilateral common or internal carotid arteries in the neck. Unremarkable lateral vertebral artery imaging.
== END 2018-06-20 17:15 | disposition left against medical advice (07) ==
LOC: H.ER 14:31 → H.ERHOLD 16:40 → H.TEL 18:47
PROVIDERS: ADMIT Internal Medicine Pulmonary Disease; ATTEND Internal Medicine Pulmonary Disease
DX: G93.89 Other specified disorders of brain (principal); D17.79 Benign lipomatous neoplasm of other sites; G40.909 Epilepsy, unspecified, not intractable, without status epilepticus; F20.9 Schizophrenia, unspecified; F31.9 Bipolar disorder, unspecified; F10.10 Alcohol abuse, uncomplicated; I10 Essential (primary) hypertension; F41.9 Anxiety disorder, unspecified
CPT/HCPCS: 36415; 70450; 70551; 70553; 71045; 80053; 80061; 81003; 82948; 83036; 84436; 84443; 84484; 85025; 85027; 85610; 85730; 93306; 93880; 99285; A9579; G0378; G0480; J7030